=== PATIENT | male | born 1955 | race Caucasian/White ===

== ENCOUNTER 2019-01-14 08:20 | Day surgery (SDC) | payer OTHER ==
[2019-01-12 14:50] VITALS: BMI 38.0
[2019-01-14 09:24] VITALS: TEMP 98.2
[2019-01-14] MEDS ORDERED: LIDOCAINE 1% 20 ML VIAL (10MG/ML) FOR IV START INTRADERMA ONE (09:35)
[2019-01-14] MEDS: LACTATED RINGERS 1,000 ML IV SCH ×2 (09:35→09:52)
[2019-01-14] MEDS ORDERED: LIDOCAINE 1% INJ 10MG/ML (20 ML MDV) ONE (09:53)
[2019-01-14] MEDS ORDERED: KETAMINE 10 MG/ML 20 ML VIAL ONE (09:53)
[2019-01-14] MEDS ORDERED: PROPOFOL 10 MG/ML 20 ML VIAL IV ONE (09:53)
--- NOTE | 2019-01-14 10:22 | P.PCN ---
Date of Procedure: 01/14/19 Procedure(s) Performed: Brief history: Patient is a pleasant 63-year-old pleasant white male scheduled for an elective upper endoscopy as well as colonoscopy as a part of evaluation of History of GERD and Screening for Colorectal Neoplasia. Procedure performed: Esophagogastroduodenoscopy with biopsy Colonoscopy Preoperative diagnosis: GERD Screening for colon cancer Anesthesia: MAC Procedure: After informed consent was obtained from the patient was brought into the endoscopy unit and IV sedation was administered by anesthesia under continuous monitoring. Initially upper endoscopy was done. The Olympus GF 160 video endoscope was inserted inserted into the mouth and esophagus intubated without any difficulty and was gradually advanced into the stomach and duodenum and carefully examined. The bulb and second part of the duodenum appeared normal. The scope was then withdrawn into the stomach adequately insufflated with air and upon careful examination the antrum had mild gastritis and biopsies were done from this area. The body, cardia and fundus appeared normal. The scope was then withdrawn into the esophagus. The GE junction was located at 40 cm to the incisors. It appeared regular with no erythema erosions or ulcerations. Rest of the esophagus appeared normal. Patient tolerated the procedure well. At this time the patient continued to remain sedation. Initial digital rectal examination was normal. Olympus CF 160 video colonoscope was then inserted into the rectum and gradually advanced to the cecum without any difficulty. Careful examination was performed as the scope was gradually being withdrawn. The prep was excellent. The cecum, ascending colon, transverse colon, descending colon, sigmoid colon and rectum appeared normal. Retroflexion was performed in the rectum and no lesions were noted. Patient tolerated the procedure well. Impression: 1. Upper endoscopy revealed mild antral gastritis. 2. Colonoscopy was within normal limits with no evidence of colitis or colorectal neoplasia Recommendations: Findings of this examination were discussed with the patient as well as his family. He was advised to follow with the biopsy results. he will continue with PPIs and follow antireflux measures. He can have a repeat screening colonoscopy in 5 years because of prior history of colon polyps.
[2019-01-14 10:53] VITALS: BP 120/76; PULSE 70; RESP 18
== END 2019-01-14 11:11 | disposition home or self-care (01) ==
LOC: ORWHC2ENDO 08:20
PROVIDERS: ATTEND Internal Medicine Gastroenterology
DX: Z12.11 Encounter for screening for malignant neoplasm of colon (principal); K29.50 Unspecified chronic gastritis without bleeding; K21.9 Gastro-esophageal reflux disease without esophagitis; G47.33 Obstructive sleep apnea (adult) (pediatric); E78.5 Hyperlipidemia, unspecified; Z79.1 Long term (current) use of non-steroidal anti-inflammatories (NSAID); Z79.82 Long term (current) use of aspirin; Z99.89 Dependence on other enabling machines and devices; Z79.899 Other long term (current) drug therapy
CPT/HCPCS: 88305; 43239; J2001; J2704; G0121

== ENCOUNTER 2019-11-23 08:12 | Day surgery (SDC) | payer OTHER ==
[2019-11-22 09:28] VITALS: BMI 35.9
[~2019-11-23 08:12] MED LIST: DEXAMETHASONE SOD PHOSPHATE 10 MG/ML 1 ML VIAL IV ONE; HEPARIN SODIUM,PORCINE 5,000 UNIT/ML 1 ML VIAL SQ ONE; HYDROmorphone 0.5 MG/0.5 ML SYRINGE IVP PRN; LACTATED RINGERS 1,000 ML IV SCH; LIDOCAINE 1% (10MG/ML) FOR IV START INTRADERMA PRN; MIDAZOLAM 2 MG/2 ML VIAL IV PRN; ONDANSETRON 4 MG/2 ML VIAL IVP ONE; Pre Op ABX Message 1 EACH MISC MISCELLANE ONE; SCOPOLAMINE 1.5MG/72HR PATCH TRANSDERM ONE
[2019-11-23] MEDS ORDERED: NA PHOS,M-B/NA PHOS,DI-BA 133 ML ENEMA RECTAL STA (08:32)
[2019-11-23 08:44] VITALS: TEMP 97
[2019-11-23] MEDS ORDERED: MIDAZOLAM 2 MG/2 ML VIAL IV ONE (09:05)
--- NOTE | 2019-11-23 10:01 | P.GSHP ---
History of Present Illness H&P Date: 11/23/19 Chief Complaint: Internal and external hemorrhoids This is a 64-year-old male who's had issues with hemorrhoids pain and bleeding and she. Patient presents today for hemorrhoidectomy Past Medical History Past Medical History: GERD/Reflux, Hearing Disorder / Deafness, Hyperlipidemia, Musculoskeletal Disorder, Osteoarthritis (OA), Sleep Apnea/CPAP/BIPAP Additional Past Medical History / Comment(s): DDD/spinal stenosis, has cpap doesn't always use History of Any Multi-Drug Resistant Organisms: None Reported Past Surgical History: Back Surgery, Hernia Repair, Orthopedic Surgery Additional Past Surgical History / Comment(s): IVAN CTR. IVAN SHOULDER SCOPES. 03-08-15 lumbar laminectomy/decompression fusion L4-5 with interbody graftin g/fusion, carpal tunnel bilat. Past Anesthesia/Blood Transfusion Reactions: No Reported Reaction Smoking Status: Former smoker - Past Family History Mother Family Medical History: No Reported History Medications and Allergies Home Medications Medication Instructions Recorded Confirmed Type Aspirin 81 mg PO DAILY 03/06/15 11/23/19 History Divalproex Sodium 750 mg PO HS 03/06/15 11/23/19 History Meloxicam [Mobic] 15 mg PO DAILY PRN 03/06/15 11/23/19 History Pantoprazole Sodium 40 mg PO BID 03/06/15 11/23/19 History Sertraline [Zoloft] 200 mg PO DAILY 03/06/15 11/23/19 History Simvastatin [Zocor] 80 mg PO DAILY 03/06/15 11/23/19 History Levothyroxine Sodium [Synthroid] 25 mcg PO DAILY 11/22/19 11/23/19 History Allergies Allergy/AdvReac Type Severity Reaction Status Date / Time No Known Allergies Allergy Verified 11/23/19 08:48 Surgical - Exam Vital Signs Temp Pulse Resp BP Pulse Ox 97 F L 65 18 147/90 95 11/23/19 08:43 11/23/19 08:43 11/23/19 08:43 11/23/19 08:43 11/23/19 08:43 - General well developed, well nourished, no distress - Eyes PERRL - ENT normal pinna - Neck no masses - Respiratory normal expansion - Cardiovascular Rhythm: regular - Abdomen Abdomen: soft, non tender Assessment and Plan Assessment: Internal and external hemorrhoids. We'll perform hemorrhoidectomy.
[2019-11-23] MEDS ORDERED: MIDAZOLAM 2 MG/2 ML VIAL ONE (10:11)
[2019-11-23] MEDS ORDERED: PROPOFOL 10 MG/ML 20 ML VIAL IV ONE (10:11)
[2019-11-23] MEDS ORDERED: fentaNYL (PF) 50 MCG/ML 2 ML AMP ONE (10:11)
[2019-11-23] MEDS ORDERED: LIDOCAINE 1% INJ 10MG/ML (20 ML MDV) ONE (10:11)
[2019-11-23] MEDS ORDERED: BUPIVACAINE (PF) 0.25% 30 ML VIAL SQ ONE (10:39)
--- NOTE | 2019-11-23 11:02 | P.OP ---
Date of Procedure: 11/23/19 Preoperative Diagnosis: Internal and external hemorrhoids Postoperative Diagnosis: Internal and external Hemorrhoids Procedure(s) Performed: Hemorrhoidectomy Anesthesia: MAC Surgeon: Nicola Sneed Estimated Blood Loss (ml): 10 Pathology: other (Interventional hemorrhoids) Condition: stable Disposition: PACU Description of Procedure: Patient's placed on the endoscopy table in the supine position. He received IV cyst. His anus was prepped and draped usual sterile fashion. The anus was anesthetized 1% local Xylocaine. The anal retractors placed and anus. Patient large left lateral hemorrhoidal column. This was grasped with a pair of Allis clamps and then using the Harmonic scissors the hemorrhoid was performed. Next the right anterior and right posterior hemorrhoidal columns were excised in identical fashion. The anus was inspected there is no bleeding seen. The anus was packed with Gelfoam. Patient top she will was sent to recovery in stable condition.
[2019-11-23 11:56] VITALS: RESP 17
[2019-11-23 12:07] VITALS: BP 137/83; PULSE 72
== END 2019-11-23 12:03 | disposition home or self-care (01) ==
LOC: OR 08:12
PROVIDERS: ATTEND Surgery
DX: K64.5 Perianal venous thrombosis (principal); K64.8 Other hemorrhoids; K64.4 Residual hemorrhoidal skin tags; G47.33 Obstructive sleep apnea (adult) (pediatric); E07.9 Disorder of thyroid, unspecified; K21.9 Gastro-esophageal reflux disease without esophagitis; F41.9 Anxiety disorder, unspecified; F32.9 Major depressive disorder, single episode, unspecified; F43.10 Post-traumatic stress disorder, unspecified; H91.90 Unspecified hearing loss, unspecified ear; E78.5 Hyperlipidemia, unspecified; M19.90 Unspecified osteoarthritis, unspecified site; M79.9 Soft tissue disorder, unspecified; M48.00 Spinal stenosis, site unspecified; Z99.89 Dependence on other enabling machines and devices; Z79.890 Hormone replacement therapy; Z79.899 Other long term (current) drug therapy; Z79.82 Long term (current) use of aspirin; Z98.890 Other specified postprocedural states; Z98.1 Arthrodesis status; Z87.891 Personal history of nicotine dependence
CPT/HCPCS: 88304; 46260; J2250; J1644; J1100; J2405; J2001; J3010; J2704

== ENCOUNTER → 2021-06-28 | Outpatient (CLI) | payer OTHER | END | disposition home or self-care (01) | LOC: LABPAT 13:03 | PROVIDERS: ATTEND Orthopaedic Surgery | DX: Z01.812 Encounter for preprocedural laboratory examination (principal) | CPT/HCPCS: 87070 ==

== ENCOUNTER 2021-07-22 06:36 | Day surgery (SDC) | payer OTHER ==
[2021-07-19 09:37] VITALS: BMI 37.4
--- NOTE | 2021-07-21 10:34 | HP ---
HISTORY AND PHYSICAL DATE OF SURGERY: 07/22/2021 Weston Prado is a 65-year-old gentleman seen with symptomatic right knee osteoarthritis. We discussed options for treatment. He elected to proceed with right total knee arthroplasty. Consent was obtained. PAST MEDICAL HISTORY: Hypertension, hyperlipidemia, hypothyroidism. PAST SURGICAL HISTORY: Noncontributory. DAILY MEDICATIONS: Aspirin, levothyroxine, pantoprazole, sertraline, simvastatin. ALLERGIES: NONE REPORTED. SOCIAL HISTORY: He smokes 3 to 5 cigars a year. Denies any cigarette use. PHYSICAL EVALUATION OF THE RIGHT KNEE: His range of motion is negative 3/4 to 115 degrees. He has a moderate effusion. He has tenderness along the medial joint line with a positive medial Kilo's, crepitus in medial and patellofemoral compartments with range of motion. Pain with patellofemoral compression. Ligaments stable. Hip rotation without pain. His distal neurovascular exam is intact. RADIOGRAPHS: Radiographs of the right knee reveal severe osteoarthritic changes. IMPRESSION: 1. Right knee osteoarthritis. 2. Hyperlipidemia. 3. Hypertension. 4. Hypothyroidism. PLAN: Right total knee arthroplasty. MMODL / IJN: [id number] /
[~2021-07-22 06:36] MED LIST changes: +ACETAMINOPHEN TAB 500 MG TAB PO PRN; -DEXAMETHASONE SOD PHOSPHATE 10 MG/ML 1 ML VIAL IV ONE; +DEXAMETHASONE SOD PHOSPHATE 4 MG/ML 1 ML VIAL IV ONE; -HEPARIN SODIUM,PORCINE 5,000 UNIT/ML 1 ML VIAL SQ ONE; -HYDROmorphone 0.5 MG/0.5 ML SYRINGE IVP PRN; -LIDOCAINE 1% (10MG/ML) FOR IV START INTRADERMA PRN; +MELOXICAM 7.5 MG TAB PO PRN; -MIDAZOLAM 2 MG/2 ML VIAL IV PRN; -Pre Op ABX Message 1 EACH MISC MISCELLANE ONE; -SCOPOLAMINE 1.5MG/72HR PATCH TRANSDERM ONE; +TRANEXAMIC ACID 1,000 MG in SODIUM CHLORIDE 0.9% 100 ML IVPB PRN; +ceFAZolin 3 GM in SODIUM CHLORIDE 0.9% 100 ML IVPB PRN
[2021-07-22] MEDS ORDERED: LIDOCAINE 1% (10MG/ML) FOR IV START INTRADERMA ONE (07:00)
[2021-07-22] MEDS ORDERED: LIDOCAINE 1% INJ 10MG/ML (20 ML MDV) ONE (07:21)
[2021-07-22] MEDS ORDERED: MIDAZOLAM 2 MG/2 ML VIAL IV ONE (07:25)
[2021-07-22] MEDS ORDERED: ceFAZolin 1,000 MG in SODIUM CHLORIDE 0.9% 1,000 ML IRRIGATION ONE (08:13)
[2021-07-22] MEDS ORDERED: LACTATED RINGERS 1,000 ML IV ONE ×3 (08:33→09:35)
[2021-07-22] MEDS ORDERED: HYDROmorphone 0.2 MG/1 ML SYRINGE IVP PRN (09:35)
[2021-07-22] MEDS ORDERED: HYDROcodone/APAP 7.5-325MG 1 EACH TAB PO PRN (09:35)
[2021-07-22] MEDS ORDERED: NALOXONE 0.4 MG/ML 1 ML VIAL IV PRN (09:35)
[2021-07-22] MEDS ORDERED: HYDROcodone/APAP 5-325MG 1 EACH TAB PO PRN (09:35)
[2021-07-22] MEDS ORDERED: HYDROmorphone 1 MG/ML 1 ML SYRINGE IVP PRN (09:35)
[2021-07-22] MEDS ORDERED: HYDROmorphone 0.5 MG/0.5 ML SYRINGE IVP PRN (09:35)
--- NOTE | 2021-07-22 09:35 | P.OP ---
Date of Procedure: 07/22/21 Preoperative Diagnosis: Right knee osteoarthritis Postoperative Diagnosis: Right knee osteoarthritis Procedure(s) Performed: Right total knee arthroplasty Implants: 1. Depuy attune size 8 right cruciate retaining cemented femur 2. Depuy attune size 8 fixed bearing cemented tibial baseplate 3. Depuy attune size 8 fixed bearing cruciate retaining 5 mm polyethylene tibial insert 4. Depuy attune 41 mm all polyethylene cemented patella Anesthesia: GETA, regional (Adductor canal catheter, Ipack block) Surgeon: Roel Antunez Electronic Publishing Specialist #1: Jacob Vasquez Estimated Blood Loss (ml): 70 Pathology: other (Bone) Condition: stable Disposition: PACU Indications for Procedure: 65-year-old patient seen with symptomatic right knee osteoarthritis. After treatment options were discussed, he elected to proceed with total knee arthroplasty. Operative Findings: See description of procedure Description of Procedure: Patient was taken to the operative suite after having an adductor canal catheter placed by the department of anesthesia as well as and Ipack block for postoperative pain management. Patient underwent a general anesthetic by the department of anesthesia. Patient was given preoperative IV intake antibiotics and TXA. A well-padded tourniquet was placed about the right lower extremity. The lower extremity was then prepped and draped in the normal sterile orthopedic fashion. The extremity was elevated, a tourniquet was insufflated to 300. A standard anterior incision was made sharply through skin. Dissection was taken down through the subcutaneous soft tissues down to the extensor mechanism. A medial arthrotomy was performed, patella was everted and knee was flexed. There was advanced osteoarthritis noted. I introduced my distal intramedullary femoral drill. I then introduced the distal femoral cutting jig. Tawanda SAHU secured the cutting jig with 2 pins. I held retractors in position while Tawanda SAHU performed the distal femoral resection through the guide area we now removed her distal femoral cutting guide. We now placed our 4-in-1 femoral cutting block and positioned and it was secured with 2 pins by Tawanda SAHU while I held the block in position. The distal femoral finishing was now completed. A proximal tibial cutting guide was positioned. I held the guide in the appropriate position with both hands well Tawanda SAHU inserted stabilizing pins into the guide. Proximal tibial cut was made. We now placed a trial femoral component into position, along with an appropriate size tibial tray and insert. We now took the knee through range of motion and had full extension good flexion and good overall soft tissue balance noted. The patella was everted and stabilized with 2 towel clips held by Tawanda SAHU while I performed a flush with patellar quad tendon utilizing a fresh sawblade. We templated the patella, appropriate drill holes were made. An appropriate trial patella was positioned, knee was taken through full range of motion with the patella tracking very nicely. The trial patella was removed. Drill holes were made through the femoral component. All trial components were removed after marking off the appropriate rotation of the tibia. Retractors were now positioned along the proximal tibia. An appropriate keel punch was made with the appropriate size tibial guide by myself on Tawanda SAHU assisted by holding retractors. At this point appropriate size implants were chosen and opened. The joint was irrigated copiously with pulse lavage mechanical irrigation. The posterior capsule was infiltrated with local analgesic. The wound was irrigated with pulse lavage mechanical irrigation. We mixed antibiotic methylmethacrylate. We placed the knee into flexion. We placed m ultiple retractors assisted by Tawanda SAHU to expose the proximal tibia. Once the methyl methacrylate was ready, the tibial component was cemented into place removing any excess methylmethacrylate form by both myself and Tawanda SAHU. The femoral component was cemented into place removing the removing any excess methylmethacrylate performed by both myself and Tawanda SAHU. We then inserted the appropriate size polyethylene tibial insert. We made sure that it was locked into position. We took the knee into full extension, and then back in a flexion making sure we had removed any excess methylmethacrylate. The patellar component was then cemented down and secured with clamp. Excess methylmethacrylate removed. We kept the knee in full extension, patellar clamp in position until methylmethacrylate had hardened. Once it had hardened the patellar clamp was removed. The knee was taken through full range of motion. The patella tracked nicely. There was good soft tissue balancing. The tourniquet was now released. Additional hemostasis was achieved via electrocautery. A second gram of TXA was given. The wound again was irrigated with pulse lavage mechanical irrigation. The superficial soft tissues were infiltrated local analgesic. The extensor mechanism was repaired with Ethibond. We checked the repair with range of motion and it was stable. The subcutaneous soft tissues were repaired with Vicryl in layers. The skin was approximated with pernio/Dermabond. Sterile dressings were applied followed by loose web roll and Blaine bandage. The patient was transferred to a bed, and taken to recovery in stable and satisfactory condition. Tawanda SAHU assisted with this complex procedure.
[2021-07-22] MEDS ORDERED: fentaNYL (PF) 50 MCG/ML 2 ML AMP IVP ONE ×2 (10:00→10:04)
[2021-07-22 10:18] VITALS: TEMP 97
[2021-07-22] MEDS ORDERED: ROPIVACAINE 0.2%-NS ON-Q PUMP 1,090 MG, EMPTY PAIN BALL 1 EACH MISCELLANE PRN (10:26)
[2021-07-22] MEDS: HYDROmorphone 0.5 MG/0.5 ML SYRINGE IVP PRN ×4 (10:29→11:12)
--- NOTE | 2021-07-22 10:53 | P.ANPRN ---
Procedure Note - Anesthesia - Nerve Block Performed Right Adductor Canal Infusion Time Out Performed: Yes (724) Date of Procedure: 07/22/21 Procedure Start Time: 07:25 Procedure Stop Time: 07:31 Location of Patient: PreOp Indication: Acute Post-Operative Pain, Requested by Surgeon Specifically requested for management of pain by DrBebe: Roel Antunez Sedation Type: Sedate with meaningful contact maintained Preparation: Sterile Prep, Sterile Dressing Position: Supine Catheter Depth at Skin (cm): 8 Catheter: Indwelling Needle Types: Pajunk Needle Gauge: 21 Ultrasound used to visualize needle placement: Yes Ultrasound used to observe medication spread: Yes Injectate: 0.5% Ropivacaine (see comment for volume) (20cc) Blood Aspirated: No Pain Paresthesia on Injection Noted: No Resistance on Injection: Normal Image Stored and Saved: Yes Events: Uneventful and Well Tolerated Right iPack Single Time Out Performed: Yes (724) Date of Procedure: 07/22/21 Procedure Start Time: 07:32 Procedure Stop Time: 07:36 Location of Patient: PreOp Indication: Acute Post-Operative Pain, Requested by Surgeon Specifically requested for management of pain by DrBebe: Roel Antunez Sedation Type: Sedate with meaningful contact maintained Preparation: Sterile Prep Position: Supine Catheter: None Needle Types: Pajunk Needle Gauge: 21 Ultrasound used to visualize needle placement: Yes Ultrasound used to observe medication spread: Yes Injectate: 0.5% Ropivacaine (see comment for volume) (15cc) Blood Aspirated: No Resistance on Injection: Normal Image Stored and Saved: Yes Events: Uneventful and Well Tolerated
[2021-07-22 10:58] VITALS: RESP 16
--- NOTE | 2021-07-22 11:44 | XR ---
Limited right knee HISTORY: Status post right knee arthroscopy 2 views of the right knee Status post right knee arthroplasty. There is anatomic alignment. Overlying sutures are present. The soft tissue swelling, lucency present within the soft tissues, possible hemarthrosis. IMPRESSION: Orthopedic follow-up as described.
[2021-07-22] MEDS ORDERED: ceFAZolin 3 GM in SODIUM CHLORIDE 0.9% 100 ML IVPB ONE (12:00)
[2021-07-22 13:15] VITALS: BP 118/76; PULSE 85
[2021-07-22] MEDS ORDERED: ONDANSETRON 4 MG/2 ML VIAL ONE (13:48)
[2021-07-22] MEDS ORDERED: ONDANSETRON 4 MG/2 ML VIAL IVP ONE (13:50)
== END 2021-07-22 14:35 | disposition home health service (06) ==
LOC: OR 06:36
PROVIDERS: ATTEND Orthopaedic Surgery
DX: M17.11 Unilateral primary osteoarthritis, right knee (principal); I10 Essential (primary) hypertension; E78.5 Hyperlipidemia, unspecified; E03.9 Hypothyroidism, unspecified; F17.290 Nicotine dependence, other tobacco product, uncomplicated; G47.33 Obstructive sleep apnea (adult) (pediatric); G62.9 Polyneuropathy, unspecified; F41.9 Anxiety disorder, unspecified; F31.9 Bipolar disorder, unspecified; F43.10 Post-traumatic stress disorder, unspecified; K21.9 Gastro-esophageal reflux disease without esophagitis; Z98.890 Other specified postprocedural states; Z79.890 Hormone replacement therapy; Z79.82 Long term (current) use of aspirin; Z79.899 Other long term (current) drug therapy; Z90.49 Acquired absence of other specified parts of digestive tract
CPT/HCPCS: 97110; 97161; 64999; 64448; 76942; 88300; 73560; 27447; C1776; C1713 ×2; J2250; J1100; J0690 ×2; J2405; J3010; J1170; J2795

== ENCOUNTER → 2022-03-20 | Outpatient (CLI) | payer OTHER ==
--- NOTE | 2022-03-20 11:32 | CA ---
Exercise Stress Test Report Name: Weston Prado Exam Date: 03/20/2022 09:33 Exam Location: [facility] Ht (in): 73 Wt (lb): 281 BSA: 2.49 Ordering Phys: Cristy Quiles DO Referring Phys: Angelica Davies Technologist: Vicente Felder Age: 66 Gender: M : 1955 Procedure CPT: Indications: I51.7 Cardiomegaly ICD-10 Codes: Patient History: Medications: Meds past 24 hrs: Pretest Chest Pain: STRESS TEST [facility] Protocol Exercise Duration (min:sec): 06:[address] Depressions (mm): Angina Score: Morales Score: Resting HR (bpm): 73 Peak HR (bpm): 136 Resting BP (mmHg): 135 / 85 Peak BP (mmHg): 214 / 71 MPHR: 154 Target HR: 131 % MPHR: 88 METS: 8.6 Total Dose: Peak Dose: Atropine: Double Product: 59975 BP Response: Stress Termination: Reached target heart rate Stress Symptoms: NO SYMPTOMS Stress Summary: ECG ANALYSIS Resting ECG: Stress ECG: CONCLUSIONS Good exercise tolerance Good augmentation in the heart rate and blood pressure response to exercise The patient achieved 85% of maximum predicted heart rate Normal EKG in response to exercise Dr. Braydon Pichardo MD (Electronically Signed) Final Date: 20 March 2022 11:31
== END | disposition home or self-care (01) ==
LOC: RADNMMAIN 08:53
PROVIDERS: ATTEND Family Medicine
DX: I20.9 Angina pectoris, unspecified (principal)
CPT/HCPCS: 93017

== ENCOUNTER → 2022-12-01 | Outpatient (CLI) | payer MEDICARE, OTHER | END | disposition home or self-care (01) | LOC: LABWHC1 10:13 | PROVIDERS: ATTEND Orthopaedic Surgery | DX: Z01.812 Encounter for preprocedural laboratory examination (principal); M19.011 Primary osteoarthritis, right shoulder; Z22.322 Carrier or suspected carrier of Methicillin resistant Staphylococcus aureus | CPT/HCPCS: 87070 ==

== ENCOUNTER 2022-12-30 08:46 | Observation (INO) | payer MEDICARE, OTHER ==
[2022-12-24 12:15] VITALS: BMI 37.5
--- NOTE | 2022-12-29 09:08 | P.HPOR ---
History of Present Illness H&P Date: 12/29/22 Chief Complaint: Left shoulder pain The patient's a 67-year-old retired male presents with progressive left shoulder pain for the past couple years worsening recently. He is having pain with any attempted overhead use. He notes significant night symptoms. He's tried medica tions in addition to an injection without much relief. He notes daily pain that limits his function and activities. Review of Systems As below Past Medical History Past Medical History: GERD/Reflux, Hearing Disorder / Deafness, Hyperlipidemia, Hypertension, Musculoskeletal Disorder, Osteoarthritis (OA), Sleep Apnea/CPAP/BIPAP Additional Past Medical History / Comment(s): DDD/spinal stenosis, has cpap doesn't always use History of Any Multi-Drug Resistant Organisms: None Reported Past Surgical History: Back Surgery, Cholecystectomy, Hernia Repair, Orthopedic Surgery Additional Past Surgical History / Comment(s): [facility]. IVAN SHOULDER SCOPES. 03-08-15 lumbar laminectomy/decompression fusion L4-5 with interbody grafting/fusion, COLONOSCOPY, HEMORRHOIDECTOMY Past Anesthesia/Blood Transfusion Reactions: Previous Problems w/ Anesthesia Additional Past Anesthesia/Blood Transfusion Reaction / Comment(s): WOKE UP DURING SURGERY Smoking Status: Current some day smoker - Past Family History Mother Family Medical History: No Reported History Medications and Allergies Home Medications Medication Instructions Recorded Confirmed Type Aspirin 81 mg PO DAILY 03/06/15 12/24/22 History Divalproex Sodium 750 mg PO HS 03/06/15 12/24/22 History Pantoprazole Sodium 40 mg PO BID 03/06/15 12/24/22 History Sertraline [Zoloft] 200 mg PO DAILY 03/06/15 12/24/22 History Simvastatin [Zocor] 80 mg PO DAILY 03/06/15 12/24/22 History Levothyroxine Sodium [Synthroid] 50 mcg PO DAILY 11/22/19 12/24/22 History Cyclobenzaprine [Flexeril] 10 mg PO TID PRN 07/19/21 12/24/22 History Pregabalin [Lyrica] 75 mg PO TID 07/19/21 12/24/22 History Sucralfate [Carafate] 1 gm PO ACHS PRN 07/19/21 12/24/22 History Metoprolol Succinate [Metoprolol 25 mg PO DAILY 12/24/22 12/24/22 History Succinate ER] lisinopriL [Zestril] 5 mg PO DAILY 12/24/22 12/24/22 History Allergies Allergy/AdvReac Type Severity Reaction Status Date / Time No Known Allergies Allergy Verified 12/24/22 11:58 Physical Examination - Shoulder left Appearance: effusion Effusion grade: grade 1 Tenderness with palpation: anterior Pain: with forward flexion ROM: forward flexion: 80 degrees (80 actively, 120 passively) ROM: internal rotation: lower lumbar ROM: external rotation: 10 degrees Strength: abduction: 5/5 Strength: external rotation: 5/5 Tests: internal impingement tests: positive Results The patient is a well-developed well-nourished male, approximately 6 foot 1, 278 pounds of endomorphic habitus. HEENT exam is nonfocal, neck supple. His distal neurovascular appears intact in the left upper extremity. - Diagnostic results Shoulder x-ray: image reviewed (Reviews of the left shoulder obtained in the office show severe glenohumeral joint osteoarthrosis with [id number] changes and subchondral sclerosis. The humeral head to acromial distance appears to be maintained.) Assessment and Plan Assessment: Left severe glenohumeral joint osteoarthrosis Plan: I talked to the patient at length regarding his condition along with treatment options. He remains quite symptomatic because of pain related to his osteoarthrosis despite extensive conservative measures. After thorough discussion he opted to proceed with surgery. We'll plan to proceed with left total shoulder arthroplasty. Risks and benefits were discussed at length in layman's terms.
[~2022-12-30 08:46] MED LIST changes: +HYDROmorphone 0.5 MG/0.5 ML SYRINGE IVP PRN; -LACTATED RINGERS 1,000 ML IV SCH; +LIDOCAINE 1% (10MG/ML) FOR IV START INTRADERMA PRN; +MIDAZOLAM 2 MG/2 ML VIAL IV PRN; -TRANEXAMIC ACID 1,000 MG in SODIUM CHLORIDE 0.9% 100 ML IVPB PRN; +TRANEXAMIC ACID IN NACL,ISO-OS 1,000 MG in SALINE 1 100ML.BAG IVPB PRN
[2022-12-30] MEDS ORDERED: LACTATED RINGERS 1,000 ML IV ONE ×2 (09:18→13:10)
[2022-12-30] MEDS ORDERED: MIDAZOLAM 2 MG/2 ML VIAL IVP ONE (09:51)
[2022-12-30] MEDS ORDERED: ROPIVACAINE 5 MG/ML 30 ML VIAL ONE (11:42)
[2022-12-30] MEDS ORDERED: MIDAZOLAM 2 MG/2 ML VIAL ONE (11:42)
[2022-12-30] MEDS ORDERED: SUCCINYLCHOLINE CHLORIDE 200 MG/10 ML VIAL IV ONE (11:42)
[2022-12-30] MEDS ORDERED: HYDROmorphone (PF) 1 MG/ML ONE (11:42)
[2022-12-30] MEDS ORDERED: TRANEXAMIC ACID IN NACL,ISO-OS 1,000 MG/100 ML BAG ONE (11:42)
[2022-12-30] MEDS ORDERED: LIDOCAINE 2% INJ 20 MG/ML (2 ML VIAL) ONE (11:42)
[2022-12-30] MEDS ORDERED: LIDOCAINE 4% LTA KIT (4 ML) TOPICAL ONE (11:42)
[2022-12-30] MEDS ORDERED: fentaNYL (PF) 50 MCG/ML 2 ML AMP ONE (11:42)
[2022-12-30] MEDS ORDERED: PROPOFOL 10 MG/ML 20 ML VIAL IV ONE (11:42)
[2022-12-30] MEDS ORDERED: diphenhydrAMINE 50 MG/ML 1 ML VIAL ONE (11:42)
[2022-12-30] MEDS ORDERED: ceFAZolin 1,000 MG in SODIUM CHLORIDE 0.9% 1,000 ML IRRIGATION ONE (12:17)
--- NOTE | 2022-12-30 13:13 | P.ANPRN ---
Procedure Note - Anesthesia - Nerve Block Performed Left Interscalene Time Out Performed: Yes (09:50) Date of Procedure: 12/30/22 Procedure Start Time: :50 Procedure Stop Time: :56 Location of Patient: PreOp Indication: Acute Post-Operative Pain, Requested by Surgeon (DR Arnold) Sedation Type: Sedate with meaningful contact maintained Preparation: Sterile Prep Position: Supine Catheter: None Needle Types: Pajunk Needle Gauge: Other (see comment) (22g) Ultrasound used to visualize needle placement: Yes Ultrasound used to observe medication spread: Yes Injectate: 0.5% Ropivacaine (see comment for volume) (20cc) Blood Aspirated: No Pain Paresthesia on Injection Noted: No Resistance on Injection: Normal Image Stored and Saved: Yes Events: Uneventful and Well Tolerated
[2022-12-30] MEDS ORDERED: SENNOSIDES-DOCUSATE SODIUM 1 EACH TAB PO PRN (13:43)
[2022-12-30] MEDS ORDERED: HYDROmorphone 0.5 MG/0.5 ML SYRINGE IVP PRN (13:43)
[2022-12-30] MEDS ORDERED: HYDROcodone/APAP 5-325MG 1 EACH TAB PO PRN (13:43)
--- NOTE | 2022-12-30 14:00 | P.OP ---
Date of Procedure: 12/30/22 Preoperative Diagnosis: Left severe glenohumeral joint osteoarthrosis Postoperative Diagnosis: Same Procedure(s) Performed: Left total shoulder arthroplasty Implants: [employer] size 12 press-fit humeral stem, size 12 body, 52 x 18 mm eccentric humeral head, 52 mm cemented central pegged glenoid component. Anesthesia: moriah MAXWELL Surgeon: Aaron Arnold Speech Therapist #1: Manav You Estimated Blood Loss (ml): 150 Pathology: other (Humeral head) Condition: stable Disposition: PACU Indications for Procedure: The patient's a 67-year-old male who presents with progressive left shoulder pain secondary to osteoarthrosis despite conservative measures. A discussion of the risks and benefits of operative intervention versus continued conservative measures was made with patient. He opted to proceed with surgery. Operative ri sks to include infection, neurovascular injury, development of blood clots, component loosening, component failure, and possible need for subsequent procedures was discussed. Informed consent was obtained. Operative Findings: As below Description of Procedure: The patient was brought to the operating room, and after induction of general an esthesia was placed in the beachchair position. The bony prominences were appropriately padded. The left upper extremity was prepped and draped in normal fashion. A deltopectoral incision was then made lateral to the coracoid process extending approximately 12 cm. The skin was incised sharply. Subcutaneous tissues were divided bluntly. Electrocautery was used for hemostasis. The deltopectoral interval was identified and the cephalic vein gently retracted laterally with the deltoid. Subdeltoid adhesions were bluntly dissected. A self-retaining retractor was placed. The clavipectoral fascia was opened and the conjoined tendon gently retracted medially. The upper one third of the pectoralis major was released to help facilitate exposure. The biceps was identified and the sheath was opened. The rotator interval was opened. The biceps was tenotomized and allowed to retract distally. A subscapularis peel was performed and this was tagged. The humeral head was then exposed releasing the capsule off the humeral neck. The shoulder was gently dislocated. A starting hole was made in the head in line with the humeral shaft. The shaft was reamed by hand up to 12 mm. There is good distal chatter. The cutting guide was placed planning on a cut flush with the rotator cuff insertion and 30 of retroversion. The cutting block was pinned in place. The humeral head cut was then made. This measured most appropriately at 52 x 18 mm. Residual inferior osteophytes were carefully removed flush with the [place] cortical bone. A posterior glenoid retractor was placed. The glenoid was then exposed releasing the labrum from the 6-12 o'clock position. Residual labral tissue was removed. The glenoid sized most appropriate 52 mm. A guidewire was then inserted planning on the appropriate version. The glenoid was reamed down to a bleeding bony surface. The central pedicle was drilled. The alignment guide was placed in the peripheral peg holes drilled. The trial size 52 mm glenoid was placed and was fully seated. There was good anterior to posterior and inferior to superior fit. The trial component was removed. Pulsatile lavage was utilized. The bony surface was dried. The peripheral peg holes were then pressurized with cement utilizing a syringe. Excess cement was removed. A central peg glenoid was then placed and was fully seated. This was gently imp acted. This was held in place until the cement had sufficiently hardened. Attention was then paid again towards preparing the proximal humerus. The appropriate broach was placed in 30 of retroversion and was fully seated. An eccentric 52 x 18 mm humeral head was placed. The shoulder was gently reduced. It was taken through a range of motion. It was felt to be stable in flexion and extension with internal and external rotation. I felt there was adequate protestant of soft tissue tension. The shoulder was gently dislocated. The trial components were then removed. A #2 Ethibond was placed laterally for reattachment of the lesser tuberosity. The humeral stem was inserted in 30 of retroversion and was fully seated. There was good rotational stability. The eccentric 52 x 18 mm humeral head was gently impacted. The shoulder was then gently reduced and taken through range of motion and was felt to be stable. Pulsatile lavage was utilized. Lesser tuberosity was reattached utilizing #2 Ethibond suture. The rotator interval was closed with #2 Ethibond suture. She had minimal drainage at this point therefore a deep drain was not placed. The deltopectoral interval was closed with interrupted 2-0 Vicryl sutures. The subcu tissues were reapproximated with interrupted 2-0 Vicryl sutures. The skin was reprepped with 3-0 subcuticular Prolene suture. Steri-Strips were applied. A sterile dressing was applied in addition to a sling. The patient was then awoken from general anesthesia and transferred to recovery room in good condition. Manav SAHU assisted during the major components the case to include positioning, exposure, resection, implantation, and closure. Blood loss was estimated at 150 mL. No complications were incurred. Sponge and needle counts were correct at the end the case.
--- NOTE | 2022-12-30 15:07 | XR ---
EXAMINATION TYPE: XR shoulder limited LT DATE OF EXAM: 12/30/2022 CLINICAL HISTORY: Left shoulder pain and osteoarthritis TECHNIQUE: Portable single view of the left shoulder is obtained immediately postoperatively. COMPARISON: Outside left shoulder x-ray November 24, 2022. FINDINGS: There is metallic hardware from left shoulder surgery in the humeral head appears satisfac tory in position. Evidence of recent surgery with adjacent subcutaneous gas noted. IMPRESSION: As above.
[2022-12-30] MEDS: LACTATED RINGERS 1,000 ML IV SCH (16:55)
[2022-12-30] MEDS: PREGABALIN 75 MG CAP PO SCH ×2 (17:03→22:05)
[2022-12-30 17:04] LABS: Basophils % (A) 0 %; Eosinophils % (A) 0 %; HCT 42.3 % (39.0-53.0); HGB 14.4 gm/dL (13.0-17.5); Lymphocytes # (A) 0.9 k/uL (1.0-4.8); Lymphocytes % (A) 8 %; MCH 30.7 pg (25.0-35.0); MCHC 33.9 g/dL (31.0-37.0); MCV 90.6 fL (80.0-100.0); Mean Platelet Volume 8.6; Monocytes # (A) 0.4 k/uL (0-1.0); Monocytes % (A) 3 %; Neutrophils # (A) 10.2 k/uL (1.3-7.7); Neutrophils % (A) 88 %; Platelet Count 203 k/uL (150-450); RBC 4.67 m/uL (4.30-5.90); RDW 13.6 % (11.5-15.5); WBC 11.6 k/uL (3.8-10.6)
[2022-12-30] MEDS: PANTOPRAZOLE 40 MG TABLET PO SCH (17:04)
--- NOTE | 2022-12-30 17:10 | P.CONS ---
History of Present Illness - Reason for Consult Consult date: 12/30/22 - History of Present Illness Patient is a 67-year-old male with history of hypertension, dyslipidemia, hyp othyroidism, GERD, depression presenting for elective left total shoulder arthroplasty. [facility] [place] physicians has been consulted for medical management. Currently patient denies any chest pain, shortness of breath, abdominal pain, urinary or bowel complaints. Pertinent positives and negatives as discussed in HPI, a complete review of systems was performed and all other systems are negative. Patient seen and examined at bedside. Vital signs reviewed General: nontoxic, no distress, appears at stated age Derm: warm, dry, dressing clean, dry, intact Head: atraumatic, normocephalic, symmetric Eyes: EOMI, no lid lag, anicteric sclera, pupils equal round reactive to light ENT: Nose and ears atraumatic Neck: No thyromegaly, supple Mouth: no lip lesion, mucus membranes moist Cardiovascular: S1S2 reg, no murmur, no edema Lungs: clear to auscultation bilateral, no rhonchi, no rales, no wheeze, no accessory muscle use Abdominal: soft, nontender to palpation, no guarding, no appreciable organome destiney Ext: no gross muscle atrophy, left arm Neuro: CN II-XII grossly intact Psych: Alert, oriented, appropriate affect Assessment/Plan: Status post left total shoulder arthroplasty Hypertension Dyslipidemia Hypothyroidism GERD Depression -Operative note reviewed, 150 mL blood loss -On oral [place], IV Dilaudid as needed for pain control -Aspirin 325 mg daily for DVT prophylaxis -Medications reviewed and reconciled -CBC and CMP ordered for tomorrow Thank you for allowing us to participate in the care of this pleasant patient. Do not hesitate to contact us with questions. Someone can be reached from the [facility] hospitalist group all hours of the day at [phone] or via [employer]. Past Medical History Past Medical History: GERD/Reflux, Hearing Disorder / Deafness, Hyperlipidemia, Hypertension, Musculoskeletal Disorder, Osteoarthritis (OA), Sleep Apnea/CPAP/BIPAP Additional Past Medical History / Comment(s): DDD/spinal stenosis, has cpap doesn't always use History of Any Multi-Drug Resistant Organisms: None Reported Past Surgical History: Back Surgery, Cholecystectomy, Hernia Repair, Orthopedic Surgery Additional Past Surgical History / Comment(s): IVAN CTR. IVAN SHOULDER SCOPES. 03-08-15 lumbar laminectomy/decompression fusion L4-5 with interbody graftin g/fusion, COLONOSCOPY, HEMORRHOIDECTOMY Past Anesthesia/Blood Transfusion Reactions: Previous Problems w/ Anesthesia Additional Past Anesthesia/Blood Transfusion Reaction / Comm: WOKE UP DURING SURGERY Past Psychological History: Anxiety, Depression, Panic Disorder, PTSD Smoking Status: Current some day smoker Past Alcohol Use History: None Reported Additional Past Alcohol Use History / Comment(s): HX RARE CIGAR USE. No cigarettes. Past Drug Use History: Marijuana Additional Drug Use History / Comment(s): CBD oils po BID.-INSTRUCTED TO REFRAIN FROM USE FOR AT LEAST 24 HOURS PRIOR TO PROCEDURE - Past Family History Mother Family Medical History: No Reported History Medications and Allergies Home Medications Medication Instructions Recorded Confirmed Type Aspirin 81 mg PO DAILY 03/06/15 12/24/22 History Divalproex Sodium 750 mg PO HS 03/06/15 12/24/22 History Pantoprazole Sodium 40 mg PO BID 03/06/15 12/24/22 History Sertraline [Zoloft] 200 mg PO DAILY 03/06/15 12/24/22 History Simvastatin [Zocor] 80 mg PO DAILY 03/06/15 12/24/22 History Levothyroxine Sodium [Synthroid] 50 mcg PO DAILY 11/22/19 12/24/22 History Cyclobenzaprine [Flexeril] 10 mg PO TID PRN 07/19/21 12/24/22 History Pregabalin [Lyrica] 75 mg PO TID 07/19/21 12/24/22 History Sucralfate [Carafate] 1 gm PO ACHS PRN 07/19/21 12/24/22 History Metoprolol Succinate [Metoprolol 25 mg PO DAILY 12/24/22 12/24/22 History Succinate ER] lisinopriL [Zestril] 5 mg PO DAILY 12/24/22 12/24/22 History Allergies Allergy/AdvReac Type Severity Reaction Status Date / Time No Known Allergies Allergy Verified 12/24/22 11:58 Physical Exam Vitals: Vital Signs Temp Pulse Pulse Resp BP BP Pulse Ox 12/30/22 15:25 68 16 112/61 98 12/30/22 15:10 66 16 125/78 98 12/30/22 15:01 100 12/30/22 14:55 65 14 110/67 97 12/30/22 14:40 68 12 106/63 96 12/30/22 14:25 66 14 102/57 96 12/30/22 14:10 70 14 104/63 95 12/30/22 13:55 97.9 F 62 12 99/58 95 12/30/22 10:05 74 18 137/76 98 12/30/22 09:13 97 F L 72 18 128/81 97 Intake and Output 12/30/22 12/30/22 12/30/22 06:59 14:59 22:59 Intake Total 1401 300 Output Total 150 Balance 1251 300 Intake: IV 1401 300 Output: Estimated Blood Loss 150 Other: Weight 129.274 kg Results CBC & Chem 7: 12/30/22 16:45 Labs: Abnormal Lab Results - Last 24 Hours (Table) 12/30/22 Range/Units 16:45 WBC 11.6 H (3.8-10.6) k/uL Neutrophils # 10.2 H (1.3-7.7) k/uL Lymphocytes # 0.9 L (1.0-4.8) k/uL
[2022-12-30] MEDS: HYDROcodone/APAP 7.5-325MG 1 EACH TAB PO PRN (19:28)
[2022-12-30] MEDS: DIVALPROEX 250 MG TABLET.DR PO SCH (22:05)
[2022-12-30] MEDS: SERTRALINE 100 MG TAB PO SCH (22:05)
[2022-12-30] MEDS: ceFAZolin 3 GM in SODIUM CHLORIDE 0.9% 100 ML IVPB SCH (22:06)
[2022-12-30] MEDS ORDERED: IPRATROPIUM-ALBUTEROL 3 ML NEB INHALATION PRN (22:40)
[2022-12-31] MEDS: SUCRALFATE 1 GM TAB PO PRN (00:48)
[2022-12-31] MEDS: HYDROcodone/APAP 7.5-325MG 1 EACH TAB PO PRN ×4 (00:48→17:43)
[2022-12-31] MEDS: CYCLOBENZAPRINE 10 MG TAB PO PRN ×2 (03:44→17:43)
[2022-12-31] MEDS: ceFAZolin 3 GM in SODIUM CHLORIDE 0.9% 100 ML IVPB SCH (05:05)
[2022-12-31] MEDS: PANTOPRAZOLE 40 MG TABLET PO SCH ×2 (05:05→17:43)
[2022-12-31] MEDS: LEVOTHYROXINE 50 MCG TAB PO SCH (05:05)
[2022-12-31] MEDS: LACTATED RINGERS 1,000 ML IV SCH (05:45)
[2022-12-31] MEDS: HYDROmorphone 0.5 MG/0.5 ML SYRINGE IVP PRN ×3 (06:34→15:27)
[2022-12-31] MEDS: ASPIRIN 325 MG TAB PO SCH (08:48)
[2022-12-31] MEDS: METOPROLOL SUCCINATE (ER) 25 MG TAB.ER.24H PO SCH (08:49)
[2022-12-31] MEDS: ATORVASTATIN 40 MG TAB PO SCH (08:49)
[2022-12-31] MEDS: lisinopriL 5 MG TAB PO SCH (08:49)
[2022-12-31] MEDS: PREGABALIN 75 MG CAP PO SCH ×3 (08:49→20:49)
[2022-12-31] MEDS: TAMSULOSIN 0.4 MG CAP.ER.24H PO SCH (09:32)
--- NOTE | 2022-12-31 10:03 | P.PN ---
Subjective Progress Note Date: 12/31/22 Principal diagnosis: Left total shoulder arthroplasty Patient was evaluated today at bedside, he is resting in his hospital bed. She is having some increase in pain. He has been utilizing arm sling as instructed. He has had 2 separate occasions since surgery yesterday where they had to straight cath due to urinary retention. Last straight cath was about an hour ago. Nursing is monitoring this at this time. Patient also did develop some shortness of breath that required use of a breathing treatment. Patient has a known history of sleep apnea, he states that his machine was recall the knee has not got another one since then. Currently has no headaches, lightheadedness or chest pain. Objective - Vital Signs Vital signs: Vital Signs Temp 98.1 F 12/31/22 07:31 Pulse 68 12/31/22 07:31 Resp 17 12/31/22 07:31 BP 125/76 12/31/22 07:31 Pulse Ox 93 L 12/31/22 07:31 FiO2 Intake & Output 12/30/22 12/31/22 12/31/22 18:59 06:59 18:59 Intake Total 1701 Output Total 150 1000 Balance 1551 -1000 Weight 129.274 kg Intake: IV 1701 Output: Urine 1000 Straight 1000 Estimated Blood Loss 150 Other: # Voids 0 - Exam Left upper extremity: Postoperative dressing was removed, Steri-Strips and suture all in good position condition. Minimal soft tissue swelling present throughout the extremity. Compartments are soft and compressible. Extension and flexion are intact at the elbow and wrist. Radial ulnar pulses are 2+. Sensory exam to light touch throughout the extremity is intact. - Labs CBC & Chem 7: 12/30/22 16:45 Labs: Abnormal Lab Results - Last 24 Hours (Table) 12/30/22 Range/Units 16:45 WBC 11.6 H (3.8-10.6) k/uL Neutrophils # 10.2 H (1.3-7.7) k/uL Lymphocytes # 0.9 L (1.0-4.8) k/uL Assessment and Plan Assessment: Postoperative day #1 status post left total shoulder arthroplasty Postoperative urinary retention Other medical comorbidities Plan: Pain control, will adjust oral medications DVT prophylaxis, continue use of aspirin 325 mg daily Sling instructions were discussed, we also discussed instances where he can take breaks from its utilize elbow and wrist basic range of motion exercises New dressing was placed over incision, continue to monitor Monitor urinary retention, if patient is unable to urinate throughout the day will likely require urinary catheter placement and urology consult Medical recommendations appreciated Discharge planning: Due to pain control and urinary retention will keep patient in hospital at this time Time with Patient: Less than 30
[2022-12-31 12:11] LABS: ALT 26 U/L (10-49); AST 34 U/L (14-35); African American GFR (CKD) 50.9 (60.0-200.0); Albumin/Globulin Ratio 2.35 (1.60-3.17); Alkaline Phosphatase 64 U/L (41-126); BUN/Creat Ratio 14.25 Ratio (12.00-20.00); Blood Urea Nitrogen 22.8 mg/dL (9.0-27.0); Calcium 8.4 mg/dL (8.7-10.3); Carbon Dioxide 26.8 mmol/L (20.0-27.5); Chloride 99 mmol/L (96-109); Globulin 1.7 g/dL (1.6-3.3); Glucose 92 mg/dL (70-110); Non-African American GFR(CKD) 43.9 (60.0-200.0); Potassium 4.2 mmol/L (3.5-5.5); Sodium 137 mmol/L (135-145); Total Bilirubin <0.15 mg/dL (0.30-1.20); Total Protein 5.7 g/dL (6.2-8.2)
--- NOTE | 2022-12-31 12:27 | P.PN ---
Subjective Progress Note Date: 12/31/22 Subjective: She is seen and examined at bedside. No acute events overnight. He has si gnificant pain in his left shoulder. Also having urinary retention, required straight cath 2 times. He denies any chest pain, abdominal pain, nausea, vomiting, diarrhea or constipation. Pertinent positives and negatives as discussed above, a complete review of systems was performed and all other systems are negative. Vitals Signs Reviewed. General: nontoxic, no distress, appears at stated age Derm: warm, dry, dressing dry, clean, intact Head: atraumatic, normocephalic, symmetric Eyes: EOMI, no lid lag, anicteric sclera Mouth: no lip lesion, mucus membranes moist Cardiovascular: S1S2 reg, no murmur Lungs: CTA bilateral, no rhonchi, no rales , no accessory muscle use Abdominal: soft, nontender to palpation, no guarding, no appreciable organomegaly Ext: no gross muscle atrophy, no edema, no contractures, left arm in a sling Neuro: CN II-XI grossly intact, no focal neuro deficits Psych: Alert, oriented, appropriate affect Data Reviewed Today: Pertinent Labs: Sodium 137, potassium 4.2, creatinine 1.6 Assessment and Plan: Acute urinary retention Acute kidney injury, likely postobstructive Status post left total shoulder arthroplasty Hypertension Dyslipidemia Hypothyroidism GERD Depression -Flomax 0.4 mg daily started -Surgery note reviewed: Continues to have urinary retention, place a [place] catheter and an urology consult -On oral [place], IV Dilaudid as needed for pain control -Aspirin 325 mg daily for DVT prophylaxis -Home medications reviewed, continue Thank you for allowing us to participate in the care of this pleasant patient. Do not hesitate to contact us with questions. Someone can be reached from the [facility] hospitalist group all hours of the day at [phone] or via [employer]. Objective - Vital Signs Vital signs: Vital Signs Temp 98.1 F 12/31/22 07:31 Pulse 68 12/31/22 07:31 Resp 17 12/31/22 07:31 BP 125/76 12/31/22 07:31 Pulse Ox 93 L 12/31/22 07:31 FiO2 Intake & Output 12/30/22 12/31/22 12/31/22 18:59 06:59 18:59 Intake Total 1701 Output Total 150 1000 Balance 1551 -1000 Weight 129.274 kg Intake: IV 1701 Output: Urine 1000 Straight 1000 Estimated Blood Loss 150 Other: # Voids 0 - Labs CBC & Chem 7: 12/30/22 16:45 12/31/22 06:21 Labs: Abnormal Lab Results - Last 24 Hours (Table) 12/30/22 12/31/22 Range/Units 16:45 06:21 WBC 11.6 H (3.8-10.6) k/uL Neutrophils # 10.2 H (1.3-7.7) k/uL Lymphocytes # 0.9 L (1.0-4.8) k/uL Creatinine 1.6 H (0.6-1.5) mg/dL Est GFR (CKD-EPI)AfAm 50.9 L (60.0-200.0) Est GFR (CKD-EPI)NonAf 43.9 L (60.0-200.0) Calcium 8.4 L (8.7-10.3) mg/dL Total Bilirubin <0.15 L (0.30-1.20) mg/dL Total Protein 5.7 L (6.2-8.2) g/dL
--- NOTE | 2022-12-31 17:52 | P.GSCN ---
History of Present Illness Consult date: 12/31/22 History of present illness: 67 yo male who underwent left shoulder surgery 12/30. He has had persistent post op urinary retention. For this reason we were asked to see the patient. The patient does have a history of previous post surgical retention. He denies problems urinating otherwise however. He has never seen a urologist. He denies infection, incontinence hematuria or difficulty with urination. The amount of retention was around a liter. Review of Systems All systems: negative - Constitutional Denies fever, Denies weight loss - EENT Eyes: denies blurred vision Ears, nose, mouth and throat: Denies dysphagia - Cardiovascular Denies chest pain, Denies shortness of breath - Respiratory Denies cough, Denies 7 - Gastrointestinal Reports as per HPI - Genitourinary Denies dysuria, Denies hematuria - Integumentary Denies rash, Denies unusual bruising - Neurological Denies headaches, Denies syncope - Hematologic/Lymphatic Denies easy bleeding, Denies easy bruising Past Medical History Past Medical History: GERD/Reflux, Hearing Disorder / Deafness, Hyperlipidemia, Hypertension, Musculoskeletal Disorder, Osteoarthritis (OA), Sleep Apnea/CPAP/BIPAP Additional Past Medical History / Comment(s): DDD/spinal stenosis, has cpap doesn't always use History of Any Multi-Drug Resistant Organisms: None Reported Past Surgical History: Back Surgery, Cholecystectomy, Hernia Repair, Orthopedic Surgery Additional Past Surgical History / Comment(s): IVAN CTR. IVAN SHOULDER SCOPES. 03-08-15 lumbar laminectomy/decompression fusion L4-5 with interbody grafting/fusion, COLONOSCOPY, HEMORRHOIDECTOMY Past Anesthesia/Blood Transfusion Reactions: Previous Problems w/ Anesthesia Additional Past Anesthesia/Blood Transfusion Reaction / Comm: WOKE UP DURING SURGERY Past Psychological History: Anxiety, Depression, Panic Disorder, PTSD Smoking Status: Current some day smoker Past Alcohol Use History: None Reported Additional Past Alcohol Use History / Comment(s): HX RARE CIGAR USE. No cigarettes. Past Drug Use History: Marijuana Additional Drug Use History / Comment(s): CBD oils po BID.-INSTRUCTED TO REFRAIN FROM USE FOR AT LEAST 24 HOURS PRIOR TO PROCEDURE - Past Family History Mother Family Medical History: No Reported History Medications and Allergies Home Medications Medication Instructions Recorded Confirmed Type Aspirin 81 mg PO DAILY 03/06/15 12/24/22 History Divalproex Sodium 750 mg PO HS 03/06/15 12/24/22 History Pantoprazole Sodium 40 mg PO BID 03/06/15 12/24/22 History Sertraline [Zoloft] 200 mg PO DAILY 03/06/15 12/24/22 History Simvastatin [Zocor] 80 mg PO DAILY 03/06/15 12/24/22 History Levothyroxine Sodium [Synthroid] 50 mcg PO DAILY 11/22/19 12/24/22 History Cyclobenzaprine [Flexeril] 10 mg PO TID PRN 07/19/21 12/24/22 History Pregabalin [Lyrica] 75 mg PO TID 07/19/21 12/24/22 History Sucralfate [Carafate] 1 gm PO ACHS PRN 07/19/21 12/24/22 History Metoprolol Succinate [Metoprolol 25 mg PO DAILY 12/24/22 12/24/22 History Succinate ER] lisinopriL [Zestril] 5 mg PO DAILY 12/24/22 12/24/22 History Allergies Allergy/AdvReac Type Severity Reaction Status Date / Time No Known Allergies Allergy Verified 12/24/22 11:58 Surgical - Exam Vital Signs Temp Pulse Resp BP Pulse Ox 97 F L 72 18 128/81 97 12/30/22 09:13 12/30/22 09:13 12/30/22 09:13 12/30/22 09:13 12/30/22 09:13 - General well developed, well nourished, no distress - Eyes normal ocular movement, no icteric - ENT no hearing loss, no congestion - Neck no masses, trachea midline - Respiratory normal respiratory effort, clear to auscultation - Abdomen Abdomen: soft, non tender, no guarding, no rigid, no rebound - Integumentary no rash, no abnormal pigmentation - Neurologic no disoriented, no combative - Psychiatric oriented to time, oriented to person, oriented to place, speech is normal, memory intact Results - Labs 12/30/22 16:45 12/31/22 06:21 Abnormal Lab Results - Last 24 Hours (Table) 12/31/22 Range/Units 06:21 Creatinine 1.6 H (0.6-1.5) mg/dL Est GFR (CKD-EPI)AfAm 50.9 L (60.0-200.0) Est GFR (CKD-EPI)NonAf 43.9 L (60.0-200.0) Calcium 8.4 L (8.7-10.3) mg/dL Total Bilirubin <0.15 L (0.30-1.20) mg/dL Total Protein 5.7 L (6.2-8.2) g/dL Diabetes panel 12/31/22 Range/Units 06:21 Sodium 137 (135-145) mmol/L Potassium 4.2 (3.5-5.5) mmol/L Chloride 99 (96-109) mmol/L Carbon Dioxide 26.8 (20.0-27.5) mmol/L BUN 22.8 (9.0-27.0) mg/dL Creatinine 1.6 H (0.6-1.5) mg/dL Glucose 92 (70-110) mg/dL Calcium 8.4 L (8.7-10.3) mg/dL AST 34 (14-35) U/L ALT 26 (10-49) U/L Alkaline Phosphatase 64 (41-126) U/L Total Protein 5.7 L (6.2-8.2) g/dL Albumin 4.0 (3.8-4.9) g/dL Calcium panel 12/31/22 Range/Units 06:21 Calcium 8.4 L (8.7-10.3) mg/dL Albumin 4.0 (3.8-4.9) g/dL Pituitary panel 12/31/22 Range/Units 06:21 Sodium 137 (135-145) mmol/L Potassium 4.2 (3.5-5.5) mmol/L Chloride 99 (96-109) mmol/L Carbon Dioxide 26.8 (20.0-27.5) mmol/L BUN 22.8 (9.0-27.0) mg/dL Creatinine 1.6 H (0.6-1.5) mg/dL Glucose 92 (70-110) mg/dL Calcium 8.4 L (8.7-10.3) mg/dL Adrenal panel 12/31/22 Range/Units 06:21 Sodium 137 (135-145) mmol/L Potassium 4.2 (3.5-5.5) mmol/L Chloride 99 (96-109) mmol/L Carbon Dioxide 26.8 (20.0-27.5) mmol/L BUN 22.8 (9.0-27.0) mg/dL Creatinine 1.6 H (0.6-1.5) mg/dL Glucose 92 (70-110) mg/dL Calcium 8.4 L (8.7-10.3) mg/dL Total Bilirubin <0.15 L (0.30-1.20) mg/dL AST 34 (14-35) U/L ALT 26 (10-49) U/L Alkaline Phosphatase 64 (41-126) U/L Total Protein 5.7 L (6.2-8.2) g/dL Albumin 4.0 (3.8-4.9) g/dL Assessment and Plan Assessment: Impression: post operative urinary retention. multiple medical illnesses. Plan: I will place this patient on tamsulosin 0.4 mg daily. He should go home with the javier and f/u in my office next week for a voiding trial.
[2022-12-31] MEDS: DIVALPROEX 250 MG TABLET.DR PO SCH (20:49)
[2022-12-31] MEDS: SERTRALINE 100 MG TAB PO SCH (20:49)
[2023-01-01] MEDS: HYDROcodone/APAP 7.5-325MG 1 EACH TAB PO PRN ×3 (01:49→13:07)
[2023-01-01] MEDS: SUCRALFATE 1 GM TAB PO PRN ×2 (02:36→07:58)
[2023-01-01] MEDS: LACTATED RINGERS 1,000 ML IV SCH (02:53)
[2023-01-01] MEDS: LEVOTHYROXINE 50 MCG TAB PO SCH (06:30)
[2023-01-01] MEDS: PANTOPRAZOLE 40 MG TABLET PO SCH (06:30)
[2023-01-01 07:34] LABS: African American GFR (CKD) 76 (>60 ml/min/1.73 sqM); Anion Gap 6 mmol/L; Blood Urea Nitrogen 22 mg/dL (9-20); Calcium 8.4 mg/dL (8.4-10.2); Carbon Dioxide 30 mmol/L (22-30); Chloride 99 mmol/L (98-107); Glucose 101 mg/dL (74-99); Non-African American GFR(CKD) 65 (>60 ml/min/1.73 sqM); Potassium 4.8 mmol/L (3.5-5.1); Sodium 135 mmol/L (137-145)
[2023-01-01] MEDS: ASPIRIN 325 MG TAB PO SCH (07:57)
[2023-01-01] MEDS: METOPROLOL SUCCINATE (ER) 25 MG TAB.ER.24H PO SCH (07:57)
[2023-01-01] MEDS: ATORVASTATIN 40 MG TAB PO SCH (07:57)
[2023-01-01] MEDS: lisinopriL 5 MG TAB PO SCH (07:57)
[2023-01-01] MEDS: TAMSULOSIN 0.4 MG CAP.ER.24H PO SCH (07:58)
[2023-01-01] MEDS: PREGABALIN 75 MG CAP PO SCH (07:58)
[2023-01-01 10:06] VITALS: BP 143/71; PULSE 81; RESP 19; TEMP 99.2
--- NOTE | 2023-01-01 10:27 | P.DS ---
Providers Date of admission: 12/30/22 13:48 Expected date of discharge: 01/01/23 Attending physician: Aaron Arnold Consults: 12/30/22 13:43 Consult Physician Routine Consulting Provider: Sera Westfall Consult Reason/Comments: medical management s/p left total shoulder arthroplasty Do you want consulting provider notified?: Yes 12/31/22 15:00 Consult Physician Routine Consulting Provider: Anjum Neal Consult Reason/Comments: unable to urinate after surgery, javier placement Do you want consulting provider notified?: Yes Primary care physician: [facility] Course: Date of admission: 12/30/2022 Date of discharge: 01/01/2023 Admission diagnosis: Left severe glenohumeral joint osteoarthrosis Discharge diagnosis: Same Attending physician: Dr. Arnold Surgical procedures: Left total shoulder arthroplasty Brief history: Patient is a 67-year-old male with a history of left severe glenohumeral joint osteoarthrosis. At this point patient has failed conservative treatment measures and has opted to proceed with a elective left total shoulder arthroplasty. Hospital course: Details of patient's surgery can be found in operative report. Patient tolerated the procedure well and was subsequently transported to orthopedic floor. Patient's orthopeidc and medical care was provided daily. Patient had daily laboratory tests performed for evaluation of overall blood counts. Patient had daily physical therapy to include strengthening range of motion as well as education with walker ambulation. Patient was treated with aspirin for their postoperative DVT prophylaxis during their inpatient stay. Patient was noted to have a relatively uneventful postoperative course. Patient reported satisfactory pain control with oral pain medications by postoperative day 2. Patient showed satisfactory progress with physical therapy. Patient moved steadily through the program and had no difficulty meeting the goals by postoperative day 2. Given patient's otherwise satisfactory course and having met physical therapy goals, plan is to discharge patient home on postoperative day 2. Discharge condition/disposition: Patient will be discharged home in stable condition. Discharge medications: Instructions are given on resumption of patient's normal daily medications per primary care recommendation, in addition patient will be prescribed Hartman 7.5 mg/325 mg; aspirin 325 mg daily 21 days; senna. Orthopedic Discharge Instructions: 1. Wound care and infection precautions, keep incision dry and covered while showering, no lotions, creams, moisturizers. No soaking, pools, hot tubs. Do not scrub over incision. 2. Nonweightbearing left upper extremity. 3. Ice when necessary. Do not exceed 20 minutes per hour with ice pack. 4. Utilize sling to left upper extremity 5. Pain meds and anticoagulants per prescription. 6. Pain medication has potential to cause constipation. Increase oral fluid and fiber intake. Contact primary care provider if you have not had a bowel movement within 48 hours after discharge. 7. No anti-inflammatory medication until discussed at first post operative visit, this including Motrin, Aleve, Mobic, Diclofenac. 8. Follow up in office at 2 weeks postop with Tawanda Vasquez PA-C / Manav You PA-C 9. Follow up with your primary care doctor 7-10 days after discharge. 10. Contact [facility] with any questions, . Assessment: Left severe glenohumeral joint osteoarthrosis Procedures: Left total shoulder arthroplasty Patient Condition at Discharge: Good Plan - Discharge Summary Discharge Rx Participant: Yes New Discharge Prescriptions: New Sennosides/Docusate Sodium [Senna Plus 8.6-50 mg Softgel] 1 each PO DAILY #20 cap Aspirin 325 mg PO DAILY #21 tab HYDROcodone/APAP 7.5-325MG [Hartman 7.5] 1 each PO Q6HR PRN #28 tab PRN Reason: Pain No Action Sertraline [Zoloft] 200 mg PO DAILY Pantoprazole Sodium 40 mg PO BID Divalproex Sodium 750 mg PO HS Simvastatin [Zocor] 80 mg PO DAILY Aspirin 81 mg PO DAILY Levothyroxine Sodium [Synthroid] 50 mcg PO DAILY Cyclobenzaprine [Flexeril] 10 mg PO TID PRN PRN Reason: Muscle Spasm Metoprolol Succinate [Metoprolol Succinate ER] 25 mg PO DAILY Sucralfate [Carafate] 1 gm PO ACHS PRN PRN Reason: abdominal pain Pregabalin [Lyrica] 75 mg PO TID lisinopriL [Zestril] 5 mg PO DAILY Discharge Medication List Aspirin 81 mg PO DAILY 03/06/15 [History] Divalproex Sodium 750 mg PO HS 03/06/15 [History] Pantoprazole Sodium 40 mg PO BID 03/06/15 [History] Sertraline [Zoloft] 200 mg PO DAILY 03/06/15 [History] Simvastatin [Zocor] 80 mg PO DAILY 03/06/15 [History] Levothyroxine Sodium [Synthroid] 50 mcg PO DAILY 11/22/19 [History] Cyclobenzaprine [Flexeril] 10 mg PO TID PRN 07/19/21 [History] Pregabalin [Lyrica] 75 mg PO TID 07/19/21 [History] Sucralfate [Carafate] 1 gm PO ACHS PRN 07/19/21 [History] Metoprolol Succinate [Metoprolol Succinate ER] 25 mg PO DAILY 12/24/22 [History] lisinopriL [Zestril] 5 mg PO DAILY 12/24/22 [History] Aspirin 325 mg PO DAILY #21 tab 01/01/23 [Rx] HYDROcodone/APAP 7.5-325MG [Hartman 7.5] 1 each PO Q6HR PRN #28 tab 01/01/23 [Rx] Sennosides/Docusate Sodium [Senna Plus 8.6-50 mg Softgel] 1 each PO DAILY #20 cap 01/01/23 [Rx] Follow up Appointment(s)/Referral(s): Manav You PAC [PHYSICIAN INSURANCE APPRAISER] - 01/15/23 9:20 am Anjum Neal MD [STAFF PHYSICIAN] - 3 Days Patient Instructions/Handouts: Shoulder Arthroplasty (DC) Activity/Diet/Wound Care/Special Instructions: Orthopedic Discharge Instructions: 1. Wound care and infection precautions, keep incision dry and covered while showering, no lotions, creams, moisturizers. No soaking, pools, hot tubs. Do not scrub over incision. 2. Nonweightbearing left upper extremity. 3. Ice when necessary. Do not exceed 20 minutes per hour with ice pack. 4. Utilize sling to left upper extremity 5. Pain meds and anticoagulants per prescription. 6. Pain medication has potential to cause constipation. Increase oral fluid and fiber intake. Contact primary care provider if you have not had a bowel movement within 48 hours after discharge. 7. No anti-inflammatory medication until discussed at first post operative visit, this including Motrin, Aleve, Mobic, Diclofenac. 8. Follow up in office at 2 weeks postop with Tawanda Vasquez PA-C / Manav You PA-C 9. Follow up with your primary care doctor 7-10 days after discharge. 10. Contact [facility] with any questions, . Discharge Disposition: HOME SELF-CARE
--- NOTE | 2023-01-01 10:36 | P.PN ---
Subjective Progress Note Date: 01/01/23 Principal diagnosis: Left severe glenohumeral joint osteoarthrosis Patient was seen at bedside this morning lying in semirecumbent position was sling to left upper extremity. Patient says he did see urology yesterday and the plan is for patient to go home with Ari and follow up with urologist next week in office. Patient says he has not had any urinary issues before. P atient says his shoulder is doing better today as far as pain goes. Patient says he did taken [place] for pain medication about 2 hours ago. Patient says he has been up walking around the room and walk down the hallway earlier this morning. Patient says he is looking forward to going home later today. Patient says he has not had bowel yet, however, patient says he has been passing gas. Patient denies chest pain, fever, shortness breath, nausea, vomiting, change in vision, loss of bowel control. Objective - Vital Signs Vital signs: Vital Signs Temp 99.2 F 01/01/23 07:57 Pulse 81 01/01/23 07:57 Resp 19 01/01/23 07:57 BP 143/71 01/01/23 07:57 Pulse Ox 92 L 01/01/23 07:57 FiO2 Intake & Output 12/31/22 01/01/23 01/01/23 18:59 06:59 18:59 Intake Total 118 Output Total 3000 1650 850 Balance -3000 -5480 732 Intake: Oral 118 Output: Urine 3000 1650 850 Other: Voiding Method Indwelling Catheter - Exam Left shoulder: Incision is clean, dry, and intact. The dressing is in good condition. There is minimal soft tissue swelling and ecchymosis surrounding the medial and lateral aspects of the incision. Calf is soft, no tenderness with palpation. Plantar flexion, dorsiflexion, EHL, FHL are intact. Sensory exam to light touch throughout the extremity is intact, dorsal pedis pulses 2+ =. Sling presents to the left upper extremity. Steri-Strips present over incision. Negative for any fluctuance/purulence. Negative for any active drainage. Sensation is equal, symmetric combine intact throughout the upper extremities. Cap refill under 3 seconds in digits the upper extremities. Patient does have full range of motion left elbow in flexion/extension and left wrist in flexion/extension. Radial pulses intact, 2+ bilaterally. - Labs CBC & Chem 7: 12/30/22 16:45 01/01/23 07:03 Labs: Abnormal Lab Results - Last 24 Hours (Table) 12/31/22 01/01/23 Range/Units 06:21 07:03 Sodium 135 L (137-145) mmol/L BUN 22 H (9-20) mg/dL Creatinine 1.6 H (0.6-1.5) mg/dL Est GFR (CKD-EPI)AfAm 50.9 L (60.0-200.0) Est GFR (CKD-EPI)NonAf 43.9 L (60.0-200.0) Glucose 101 H (74-99) mg/dL Calcium 8.4 L (8.7-10.3) mg/dL Total Bilirubin <0.15 L (0.30-1.20) mg/dL Total Protein 5.7 L (6.2-8.2) g/dL Assessment and Plan Assessment: 1. Left severe glenohumeral joint osteoarthrosis - Postop day #2 status post left total shoulder arthroplasty 2.post-op urinary retention Plan: 1. Left severe glenohumeral joint osteoarthrosis; post-op urinary retention - left total shoulder arthroplasty performed Thursday, for 1822. Patient stable at bedside this morning his sling to left upper extremity. Patient does have a Chapman in place and will be going home with Chapman in place and following up with urology next week. Discharge home today. 2. Appreciate medical management 3. Pain management - Bellflower 4. DVT prophylaxis - aspirin 5. GI prophylaxis - senna 6. PT/OT - maintain sling to left upper extremity. Nonweightbearing left upper extremity. Patient may perform gentle range of motion exercises of left elbow and left wrist. 7. Encourage incentive spirometer use 8. Discharge planning - discharge home today Time with Patient: Less than 30
--- NOTE | 2023-01-01 12:12 | P.PN ---
Subjective Progress Note Date: 01/01/23 Subjective: She is seen and examined at bedside. No acute events overnight. He has minimal pain in his left shoulder. Has Chapman catheter in place. He denies any chest pain, abdominal pain, nausea, vomiting, diarrhea or constipation. Pertinent positives and negatives as discussed above, a complete review of systems was performed and all other systems are negative. Vitals Signs Reviewed. General: nontoxic, no distress, appears at stated age Derm: warm, dry, dressing dry, clean, intact Head: atraumatic, normocephalic, symmetric Eyes: EOMI, no lid lag, anicteric sclera Mouth: no lip lesion, mucus membranes moist Cardiovascular: S1S2 reg, no murmur Lungs: CTA bilateral, no rhonchi, no rales , no accessory muscle use Abdominal: soft, nontender to palpation, no guarding, no appreciable organomegaly Ext: no gross muscle atrophy, no edema, no contractures, left arm in a sling Neuro: CN II-XI grossly intact, no focal neuro deficits Psych: Alert, oriented, appropriate affect Data Reviewed Today: Pertinent Labs: Sodium 135, creatinine 1.16 Assessment and Plan: Acute urinary retention, status post Chapman catheter Acute kidney injury, likely postobstructive, improved Status post left total shoulder arthroplasty Hypertension Dyslipidemia Hypothyroidism GERD Depression -Flomax 0.4 mg daily -Urology to follow outpatient for voiding trial -Surgery note reviewed: Patient being discharged -On oral [place], IV Dilaudid as needed for pain control -Aspirin 325 mg daily for DVT prophylaxis -Home medications reviewed Patient is medically optimized for discharge home Thank you for allowing us to participate in the care of this pleasant patient. Do not hesitate to contact us with questions. Someone can be reached from the [facility] hospitalist group all hours of the day at [phone] or via [email or web address]. Objective - Vital Signs Vital signs: Vital Signs Temp 99.2 F 01/01/23 07:57 Pulse 81 01/01/23 07:59 Resp 19 01/01/23 07:59 BP 143/71 01/01/23 07:57 Pulse Ox 92 L 01/01/23 07:57 FiO2 Intake & Output 12/31/22 01/01/23 01/01/23 18:59 06:59 18:59 Intake Total 118 Output Total 3000 3950 850 Balance -8441 -0695 -482 Intake: Oral 118 Output: Urine 3000 1650 850 Other: Voiding Method Indwelling Catheter Indwelling Catheter - Labs CBC & Chem 7: 12/30/22 16:45 01/01/23 07:03 Labs: Abnormal Lab Results - Last 24 Hours (Table) 01/01/23 Range/Units 07:03 Sodium 135 L (137-145) mmol/L BUN 22 H (9-20) mg/dL Glucose 101 H (74-99) mg/dL
== END 2023-01-01 14:01 | disposition home or self-care (01) ==
LOC: OR 08:46 → 4SSUR 13:48
PROVIDERS: ADMIT Orthopaedic Surgery; ATTEND Orthopaedic Surgery
DX: M19.012 Primary osteoarthritis, left shoulder (principal); N17.9 Acute kidney failure, unspecified; N99.89 Other postprocedural complications and disorders of genitourinary system; R33.9 Retention of urine, unspecified; G47.33 Obstructive sleep apnea (adult) (pediatric); I10 Essential (primary) hypertension; K21.9 Gastro-esophageal reflux disease without esophagitis; E78.5 Hyperlipidemia, unspecified; M48.00 Spinal stenosis, site unspecified; E03.9 Hypothyroidism, unspecified; M51.37 Other intervertebral disc degeneration, lumbosacral region; F32.A Depression, unspecified; F41.0 Panic disorder [episodic paroxysmal anxiety]; F43.10 Post-traumatic stress disorder, unspecified; F41.9 Anxiety disorder, unspecified; H91.90 Unspecified hearing loss, unspecified ear; F17.200 Nicotine dependence, unspecified, uncomplicated; Z79.82 Long term (current) use of aspirin; Z79.899 Other long term (current) drug therapy; Z79.890 Hormone replacement therapy; Z90.49 Acquired absence of other specified parts of digestive tract; Z98.1 Arthrodesis status; Z98.890 Other specified postprocedural states
CPT/HCPCS: 23472; 94640; 64415; 76942; 80053; 80048; 85025; 88300; 73020; G0378 ×2; C1713; C1776; J2250; J0330; J1200; J1100; J0690 ×3; J2405; J3010; J1170 ×2; J2795; J2704; J2001

== ENCOUNTER → 2023-11-24 | Outpatient (CLI) | payer MEDICARE, OTHER ==
[2023-11-24 08:21] LABS: African American GFR (CKD) >90 (>60 ml/min/1.73 sqM); Blood Urea Nitrogen 18 mg/dL (9-20); Non-African American GFR(CKD) 82 (>60 ml/min/1.73 sqM)
--- NOTE | 2023-11-24 12:33 | CT ---
EXAMINATION: CT ABDOMEN AND PELVIS WITH IV CONTRAST DATE OF EXAMINATION: 11/24/2023. COMPARISON: None available. INDICATION: Left inguinal pain. PROCEDURE: Axial CT of the abdomen and pelvis was performed with contrast and sagittal and coronal reformatted images were performed. CT dose lowering techniques were used, to include: automated expos ure control, adjustment for patient size, and/or use of iterative reconstruction. FINDINGS: LOWER CHEST : The visualized lung bases are clear. There are no pleural or pericardial effusions. ABDOMEN: Liver and Biliary system: Normal. Adrenal glands: Normal. Kidneys and ureters: There is a 3 mm nonobstructing stone in the upper pole of the right kidney. The kidneys and ureters otherwise appear unremarkable. Spleen: Normal. Pancreas: Normal. Gallbladder: Surgically absent. Lymph nodes, Peritoneum and mesentery: There is no mesenteric or retroperitoneal lymphadenopathy. Gastrointestinal tract: There are no dilated loops of bowel or free intraperitoneal air. The appe ndix is normal. There is moderate descending colonic and sigmoid colonic diverticulosis without evide nce of diverticulitis. Aorta/IVC: There is mild vascular calcification throughout the abdominal aorta without evidence of aneurysmal dilation or dissection. IVC normal. Abdominal wall: Normal. PELVIS: Fluid: There is no free fluid in the pelvis. Lymph Nodes: There is no pelvic or inguinal lymphadenopathy.. Urinary bladder: Normal. BONES: Posterior spinal fusion is seen between L4 and L5. There are no acute osseous abnormalities. ADDITIONAL SIGNIFICANT FINDINGS: There is a small fat-containing indirect left inguinal hernia.. IMPRESSION: 1. No acute process seen within the abdomen or pelvis. 2. Small left inguinal hernia. 3. Diverticulosis without evidence of diverticulitis. 4. Nonobstructing right renal stone.
== END | disposition home or self-care (01) ==
LOC: RADCTMAIN 07:32
PROVIDERS: ATTEND Family Medicine
DX: K40.90 Unilateral inguinal hernia, without obstruction or gangrene, not specified as recurrent (principal); N20.0 Calculus of kidney; K57.30 Diverticulosis of large intestine without perforation or abscess without bleeding
CPT/HCPCS: 82565; 84520; 74177; 36415; Q9967

== ENCOUNTER → 2024-09-16 | Outpatient (CLI) | payer MEDICARE, OTHER | END | disposition home or self-care (01) | LOC: RADNMMAIN 08:09 | PROVIDERS: ATTEND Family Medicine | DX: Z53.9 Procedure and treatment not carried out, unspecified reason (principal) ==

== ENCOUNTER → 2024-09-26 | Outpatient (CLI) | payer MEDICARE, OTHER ==
[~2024-09-26] MED LIST changes: -ACETAMINOPHEN TAB 500 MG TAB PO PRN; -DEXAMETHASONE SOD PHOSPHATE 4 MG/ML 1 ML VIAL IV ONE; -HYDROmorphone 0.5 MG/0.5 ML SYRINGE IVP PRN; -LIDOCAINE 1% (10MG/ML) FOR IV START INTRADERMA PRN; -MELOXICAM 7.5 MG TAB PO PRN; -MIDAZOLAM 2 MG/2 ML VIAL IV PRN; -ONDANSETRON 4 MG/2 ML VIAL IVP ONE; +REGADENOSON 0.4 MG/5 ML SYRINGE IV PRN; -TRANEXAMIC ACID IN NACL,ISO-OS 1,000 MG in SALINE 1 100ML.BAG IVPB PRN; -ceFAZolin 3 GM in SODIUM CHLORIDE 0.9% 100 ML IVPB PRN
--- NOTE | 2024-09-26 10:57 | CA ---
Lexiscan Nuclear Stress Test Report Name: Weston Prado Exam Date: 09/26/2024 10:28 Exam Location: [place] Stress Ht (in): Wt (lb): BSA: Ordering Phys: Sarthak Reed MD Referring Phys: Angelica Davies Technologist: EVELIO Age: 69 Gender: M : 1955 Procedure CPT: Indications: R06.09 Dyspnea on exertion ICD-10 Codes: Patient History: Shortness of breath, palpitations and hypertension. Medications: Meds past 24 hrs: Pretest Chest Pain: STRESS TEST Lexiscan Protocol Exercise Duration (min:sec): 01:[address] Depressions (mm): Angina Score: Morales Score: Resting HR (bpm): 62 Peak HR (bpm): 89 Resting BP (mmHg): 140 / 87 Peak BP (mmHg): 153 / 72 MPHR: 151 Target HR: 128 % MPHR: 59 METS: 1.0 Total Dose: Peak Dose: Atropine: Double Product: 53707 BP Response: Stress Termination: Infusion complete Stress Symptoms: No chest pain or symptoms Stress Summary: ECG ANALYSIS Resting ECG: Sinus rhythm. Normal conduction. No arrhythmias. Normal repolarization. Stress ECG: No ECG changes from baseline with Lexiscan infusion. CONCLUSIONS No ECG evidence of ischemia with Lexiscan infusion. Nuclear test results to follow. Dr. Amarjit Pradhan MD (Electronically Signed) Final Date: 26 September 2024 10:56
--- NOTE | 2024-09-26 14:54 | NM ---
EXAMINATION TYPE: NM stress lexiscan cardiolite DATE OF EXAM: 09/26/2024 COMPARISON: NONE CLINICAL INDICATION: Male, 69 years old with history of R06.09 dyspnea on exertion; history of hypert ension, hypercholesteremia, and asthma. TECHNIQUE: After the intravenous administration of 10.0 mCi Tc 99m Sestamibi - Cardiolite resting SP ECT images acquired 45 minutes post injection. The patient received 0.4mg Lexiscan, 24.7 mCi Tc 99m Sestamibi - Stress images obtained [address] injection FINDINGS: Review of stress and rest SPECT images demonstrates diminished radiotracer uptake lateral wall toward s the apex on short axis and horizontal long axis views in which acute ischemia cannot be excluded.. Gated analysis shows normal estimated left ventricular ejection fraction of 42-52 %. End-diastolic v olume is upper limits of normal to mildly dilated. IMPRESSION: Cannot exclude acute ischemia left lateral ventricular wall towards the apex . Consider f urther investigation with direct catheter angiogram based on clinical correlation. [facility], , 09/26/2024 2:52 PM
== END | disposition home or self-care (01) ==
LOC: RADNMMAIN 07:56
PROVIDERS: ATTEND Family Medicine
DX: J45.909 Unspecified asthma, uncomplicated (principal); I10 Essential (primary) hypertension; E78.00 Pure hypercholesterolemia, unspecified; R06.09 Other forms of dyspnea
CPT/HCPCS: 93017; 78452; A9500; J2785

== ENCOUNTER 2024-12-19 05:42 | Day surgery (SDC) | payer OTHER ==
[2024-12-19] MEDS ORDERED: HEPARIN SODIUM,PORCINE 10,000 UNIT in SODIUM CHLORIDE 0.9% 1,000 ML IRRIGATION PRN (05:53)
[2024-12-19] MEDS ORDERED: NITROGLYCERIN SL TABS 0.4 MG TAB SUBLINGUAL PRN (05:53)
[2024-12-19] MEDS ORDERED: ALPRAZolam 0.25 MG TAB PO PRN (05:53)
[2024-12-19] MEDS ORDERED: HEPARIN SODIUM,PORCINE (1 ML) 2,500 UNIT in SODIUM CHLORIDE 0.9% 250 ML IRRIGATION PRN (05:53)
[2024-12-19] MEDS ORDERED: ALPRAZolam 0.5 MG TAB PO PRN (05:53)
[2024-12-19 06:30] VITALS: RESP 16; TEMP 98.4
[2024-12-19] MEDS: ASPIRIN 325 MG TAB PO STA (06:32)
[2024-12-19] MEDS: SODIUM CHLORIDE 0.9% 1,000 ML in EMPTY BAG 1 BAG IV SCH (06:32)
[2024-12-19] MEDS: ATORVASTATIN 80 MG TAB PO STA (06:32)
[2024-12-19 06:41] LABS: Basophils % (A) 0 %; Eosinophils # (A) 0.1 k/uL (0-0.7); Eosinophils % (A) 3 %; HCT 43.6 % (39.0-53.0); Lymphocytes # (A) 1.9 k/uL (1.0-4.8); Lymphocytes % (A) 36 %; MCH 28.6 pg (25.0-35.0); MCV 89.4 fL (80.0-100.0); Mean Platelet Volume 8.9; Monocytes # (A) 0.3 k/uL (0-1.0); Monocytes % (A) 6 %; Neutrophils # (A) 2.8 k/uL (1.3-7.7); Neutrophils % (A) 52 %; Platelet Count 173 k/uL (150-450); RBC 4.88 m/uL (4.30-5.90); RDW 15.2 % (11.5-15.5); WBC 5.3 k/uL (3.8-10.6)
[2024-12-19 06:57] LABS: African American GFR (CKD) >90 (>60 ml/min/1.73 sqM); Anion Gap 7 mmol/L; Blood Urea Nitrogen 18 mg/dL (9-20); Carbon Dioxide 26 mmol/L (22-30); Chloride 104 mmol/L (98-107); Glucose 108 mg/dL (74-99); Non-African American GFR(CKD) 79 (>60 ml/min/1.73 sqM); Potassium 4.4 mmol/L (3.5-5.1); Sodium 137 mmol/L (137-145)
[2024-12-19] MEDS: IV FLUID CONTINUATION 1,000 ML IV ONE (07:10)
[2024-12-19] MEDS: HEPARIN SODIUM,PORCINE 10,000 UNIT in SODIUM CHLORIDE 0.9% 1,000 ML IRRIGATION ONE (07:12)
[2024-12-19] MEDS: MIDAZOLAM 2 MG/2 ML VIAL IVP ONE (07:40)
[2024-12-19] MEDS: fentaNYL (PF) 50 MCG/1 ML VIAL IVP ONE (07:40)
[2024-12-19] MEDS: LIDOCAINE 1% INJ 10MG/ML (20 ML MDV) SQ ONE (07:41)
[2024-12-19] MEDS: VERAPAMIL SYRINGE (5 MG/10 ML) INTRAARTER ONE (07:42)
[2024-12-19] MEDS: HEPARIN SODIUM 1,000 UN/ML (10ML VL) IVP ONE (07:46)
[2024-12-19] MEDS: HEPARIN SODIUM,PORCINE (1 ML) 2,500 UNIT in SODIUM CHLORIDE 0.9% 250 ML IRRIGATION ONE (07:46)
[2024-12-19] MEDS: IOPAMIDOL-370 100ML BTL INJ ONE (07:50)
--- NOTE | 2024-12-19 07:59 | P.CARDCATH ---
Description of Procedure: PROCEDURES PERFORMED: Left heart catheterization, bilateral coronary angiography, ultrasound guided arterial access INDICATION: Normal stress test CONSENT:I have discussed the risks, benefits and alternative therapies for the above-mentioned procedure and for both sedation/analgesia as well as necessary blood product administration, if indicated, as they pertain to this patient. The patient has indicated understanding and acceptance of the risks and procedures discussed. PROCEDURE: After the risks, benefits and alternatives of the above mentioned procedure explained in detail with the patient, informed consent was obtained. Patient was taken to the catheterization lab and prepped and draped in usual fashion. Ultrasound guidance was used to assess for arterial access. 1% lidocaine was used to anesthetize the right radial artery. A 6-[place] sheath was placed in the right radial artery using modified Seldinger technique and ultrasound guidance. Left coronary angiography was performed with a 5-[place] JL 3.5 catheter and right coronary angiography was performed with a 5-[place] FR5 catheter in various views. A 5-[place] FR5 catheter was inserted into the left ventricle and pressure measurements were obtained. The right radial sheath was removed and a TR band was placed with hemostasis achieved. The patient tole rated the procedure well. Patient was transported back to the post catheterization holding area in stable condition. Conscious Sedation: Patient was monitored under the direct supervision of myself for conscious sedation using Versed and fentanyl for a total duration of 10 minutes HEMODYNAMICS: Aorta: 142/92 LV: 138/10, LVEDP 25 SELECTIVE CORONARY ARTERIOGRAPHY: LEFT MAIN: The left main is a large caliber vessel which bifurcates into the LAD and circumflex. There is no significant stenosis. LEFT ANTERIOR DESCENDING CORONARY ARTERY: LAD is a large caliber vessel which wraps around to the apex. There are mild luminal irregularities of the LAD. LEFT CIRCUMFLEX CORONARY ARTERY: Left circumflex is a moderate caliber vessel without significant stenosis. RIGHT CORONARY ARTERY: The right coronary artery is a large caliber vessel which gives off a PDA and PLV branch and is the dominant vessel. There is a proximal RCA 10 to 20% stenosis and otherwise normal. FINAL IMPRESSION: 1. Relatively normal coronary arteries as described above other than RCA 10 to 20% stenosis and mild luminal irregularities of the LAD. 2. Elevated left sided filling pressures PLAN: 1. Aggressive risk factor modification per most recent ACC/AHA guidelines. 2. Follow-up in the office in 1-2 weeks.
[2024-12-19 17:08] VITALS: BP 144/79; PULSE 66
== END 2024-12-19 11:02 | disposition home or self-care (01) ==
LOC: CATHCVL 05:42
PROVIDERS: ATTEND Internal Medicine
DX: I25.10 Atherosclerotic heart disease of native coronary artery without angina pectoris (principal); I10 Essential (primary) hypertension; E78.2 Mixed hyperlipidemia; E66.9 Obesity, unspecified; G47.33 Obstructive sleep apnea (adult) (pediatric); Z68.39 Body mass index [BMI] 39.0-39.9, adult; Z79.02 Long term (current) use of antithrombotics/antiplatelets; Z79.82 Long term (current) use of aspirin; Z79.890 Hormone replacement therapy; Z79.899 Other long term (current) drug therapy
CPT/HCPCS: 93458; 80048; 85025; 99152; C1894; J2250; J1644 ×3; J2003; Q9967; J3010

== ENCOUNTER 2025-02-18 10:35 | Emergency (ER) | payer OTHER ==
[2025-02-18 10:44] VITALS: RESP 18; TEMP 97.6
--- NOTE | 2025-02-18 10:46 | ED ---
Fall HPI - General Chief Complaint: Fall Stated Complaint: Fall Time Seen by Provider: 02/18/25 10:37 Source: patient, RN notes reviewed Mode of arrival: EMS Limitations: no limitations - History of Present Illness Initial Comments: This is a 69-year-old male who presents to the emergency department for a fall. Patient was walking around [employer] and tripped on a pallet, injuring his right ankle and lower back. Denies hitting his head or any loss of consciousness. Not taking any blood thinners. Of note, this was incorrectly mentioned by registration, he is only on baby aspirin, not any other blood thinners. He does have multiple abrasions on his extremities, however these are not particularly painful. Unsure when his last tetanus vaccine is. His largest concern is the lower back and right ankle. MD Complaint: fall - Related Data Home Medications Medication Instructions Recorded Confirmed Aspirin 81 mg PO DAILY 03/06/15 12/19/24 Divalproex Sodium 750 mg PO HS 03/06/15 12/15/24 Pantoprazole Sodium 40 mg PO BID 03/06/15 12/19/24 Sertraline [Zoloft] 200 mg PO DAILY 03/06/15 12/15/24 Cyclobenzaprine [Flexeril] 10 mg PO TID PRN 07/19/21 12/15/24 Pregabalin [Lyrica] 75 mg PO TID 07/19/21 12/19/24 Sucralfate [Carafate] 1 gm PO ACHS PRN 07/19/21 12/15/24 lisinopriL [Zestril] 20 mg PO DAILY 12/24/22 12/19/24 Albuterol Sulfate [Albuterol 1 - 2 puff PO RT-Q4H PRN 05/27/23 12/15/24 Sulfate Hfa] Carboxymethylcellulose Sodium 1 drop BOTH EYES TID PRN 05/27/23 12/15/24 [Refresh Tears] Fluticasone Nasal [place] [Flonase 1 spray EA NOSTRIL DAILY PRN 05/27/23 12/15/24 Nasal [place]] Fluticasone/Umeclidin/Vilanter 1 puff INHALATION RT-DAILY 05/27/23 12/15/24 [Trelegy Ellipta 100-62.5-25] Ibuprofen [Advil] 200 mg PO Q8HR PRN 05/27/23 12/15/24 Levothyroxine Sodium [Synthroid] 50 mcg PO DAILY 05/27/23 12/19/24 Previous Rx's Medication Instructions Recorded Atorvastatin [Lipitor] 40 mg PO HS 90 Days #90 tab 05/27/23 Allergies Allergy/AdvReac Type Severity Reaction Status Date / Time No Known Allergies Allergy Verified 12/19/24 06:33 Review of Systems ROS Statement: Those systems with pertinent positive or pertinent negative responses have been documented in the HPI. ROS Other: All systems not noted in ROS Statement are negative. Past Medical History Past Medical History: GERD/Reflux, Hearing Disorder / Deafness, Hyperlipidemia, Hypertension, Musculoskeletal Disorder, Osteoarthritis (OA), Sleep Apnea/CPAP/BIPAP, Thyroid Disorder Additional Past Medical History / Comment(s): DDD/spinal stenosis, has cpap doesn't always use, hypothyroidism History of Any Multi-Drug Resistant Organisms: None Reported Past Surgical History: Back Surgery, Hernia Repair, Orthopedic Surgery Additional Past Surgical History / Comment(s): [facility]. 03-08-15 lumbar laminectomy/decompression fusion L4-5 with interbody grafting/fusion, bilat. inguinal hernia repairs, Rt. TKA Past Anesthesia/Blood Transfusion Reactions: No Reported Reaction Additional Past Anesthesia/Blood Transfusion Reaction / Comment(s): woke up during surgery several years ago. more recently has taken longer to come out of anesthesia, tried to get off the table after knee surgery Smoking Status: Never smoker - Past Family History Mother Family Medical History: Coronary Artery Disease (CAD) Additional Family Medical History / Comment(s): lived to be age 96 Father Family Medical History: Coronary Artery Disease (CAD), Myocardial Infarction ([place]) General Exam Limitations: no limitations General appearance: alert, in no apparent distress Head exam: Present: atraumatic, normocephalic, normal inspection Respiratory exam: Present: normal lung sounds bilaterally. Absent: respiratory distress, wheezes, rales, rhonchi, stridor Cardiovascular Exam: Present: regular rate, normal rhythm Extremities exam: Present: other (Tenderness to palpation over the right ankle. Range of motion limited by pain. 2+ DP and PT pulses) Back exam: Present: other (Tenderness to palpation over the lumbar spine. No swelling or ecchymosis.) Neurological exam: Present: alert, oriented X3, CN II-XII intact Psychiatric exam: Present: normal affect, normal mood Skin exam: Present: other (Scattered abrasions to the right upper and right lower extremity. No active bleeding.) Course Vital Signs 02/18/25 10:37 Temperature 97.6 F Pulse Rate 75 Respiratory 18 Rate Blood Pressure 162/87 O2 Sat by Pulse 97 Oximetry Medical Decision Making - Medical Decision Making This is a 69-year-old male who presents to the emergency department for right ankle pain and low back pain after a fall. Was pt. sent in by a medical professional or institution? @ -No Did you speak to anyone other than the patient for history? @ -No Did you review nursing and triage notes? @ -Yes, and I agree, it is accurate with regards to the patient's symptoms. Were old charts reviewed? @ -No Differential Diagnosis? @ -Differential Musculoskeletal Muscular strain, contusion, ligament sprain, fracture, arthritis, septic arthritis, bursitis, cellulitis, muscle spasm, nerve compression, DVT, arterial occlusion, herpes zoster, electrolyte abnormality, tumor.... This is not meant to be in all inclusive list EKG interpreted by me (3pts min.)? @ -Not obtained X-rays interpreted by me (1pt min.)? @ -X-ray of the lumbar spine obtained. My interpretation identifies no acute fractures. X-ray of the right ankle obtained. My interpretation identifies no acute fractures. CT interpreted by me (1pt min.)? @ -Not obtained U/S interpreted by me (1pt. min.)? @ -Not obtained What testing was considered but not performed? (CT, X-rays, U/S, labs)? Why? @ -None What meds were considered but not given? Why? @ -None Did you discuss the management of the patient with other professionals? @ -No Did you reconcile home meds? @ -No Was smoking cessation discussed for >3mins.? @ -No Was critical care preformed (if so, how long)? @ -No Were there social determinants of health that impacted care today? How? (Homelessness, low income, unemployed, alcoholism, drug addiction, transportation, low edu. Level, literacy, decrease access to med. care, longterm, rehab)? @ -No Was there de-escalation of care discussed even if they declined? (Discuss DNR or withdrawal of care, Hospice)? @ -No What co-morbidities impacted this encounter? (DM, HTN, Smoking, COPD, CAD, Cancer, CVA, Hep., AIDS, mental health diagnosis, sleep apnea, morbid obesity)? @ -Osteoarthritis, degenerative disc disease Was patient admitted / discharged? @ -Discharged. X-ray of the lumbar spine obtained revealing no acute process. X-ray of the right ankle obtained also revealing no acute findings. Tetanus vaccine was updated due to the multiple abrasions. Advised that symptoms may be related to an ankle sprain. However, if he continues to have pain after 10 to 14 days he may need repeat x-rays in the event there is a fracture that is not currently identifiable. He was given a Velcro stirrup splint for support. Advised to continue with ice and elevation as well as ibuprofen and Tylenol as needed for pain relief. Patient discharged home in stable condition. Case discussed with ED attending Dr. Holloway. Return precautions reviewed in depth, the patient is instructed to return to the emergency department with any new, worsening, or concerning symptoms. Patient verbalized understanding. Undiagnosed new problem with uncertain prognosis? @ -None Drug Therapy requiring intensive monitoring for toxicity (Heparin, Nitro, Insulin, Cardizem)? @ -None Were any procedures done? @ -None Diagnosis/symptom? @ -Fall, right ankle sprain, lumbar contusion Acute, or Chronic, or Acute on Chronic? @ -Acute Uncomplicated (without systemic symptoms) or Complicated (systemic symptoms)? @ -Uncomplicated Side effects of treatment? @ -None Exacerbation, Progression, or Severe Exacerbation] @ -Not applicable Poses a threat to life or bodily function? @ -No - Radiology Data Radiology results: report reviewed, image reviewed Disposition Clinical Impression: Fall, Right ankle sprain, Lumbar contusion Disposition: HOME SELF-CARE Instructions (If sedation given, give patient instructions): Ankle Sprain (ED) Additional Instructions: Return to the emergency department with any new, worsening, or concerning symptoms. Alternate with ibuprofen and Tylenol as needed for pain relief. Continue to ice and elevate the leg. Use the Velcro splint provided as needed for discomfort and for support. If you continue to have pain after 10 to 14 days, you may need repeat x-rays. You can have that done here, with your primary care provider, or urgent care. Is patient prescribed a controlled substance at d/c from ED?: No Referrals: Reema Reed DO [Primary Care Provider] - 1-2 days Time of Disposition: 11:56
[2025-02-18] MEDS: ACETAMINOPHEN TAB 500 MG TAB PO STA (10:54)
[2025-02-18] MEDS: DIPH,PERTUS(ACELL)TETVAC-LF 0.5 ML VIAL IM ONE (10:55)
[2025-02-18] MEDS: CYCLOBENZAPRINE 10 MG TAB PO STA (10:55)
[2025-02-18] MEDS: IBUPROFEN 800 MG TAB PO STA (10:55)
--- NOTE | 2025-02-18 11:39 | XR ---
EXAMINATION TYPE: XR lumbar spine 2 or 3V DATE OF EXAM: 02/18/2025 11:16 AM COMPARISON: 05/28/2015 CLINICAL INDICATION: Male, 69 years old with history of Fall, pain TECHNIQUE: 3 view(s) obtained. FINDINGS: There are 5 lumbar-type vertebral bodies. Pedicle screws and fixation rods are present at L4-5. Remai vega levels appear intact. There is disc space narrowing L3-4. Remaining disc spaces appear preserved . Disc spacer is visualized at L4-5. No spondylolisthesis is evident. No significant interval change evident. IMPRESSION: 1. Degenerative disc change L3-4. [facility], , 02/18/2025 11:36 AM
--- NOTE | 2025-02-18 11:41 | XR ---
EXAMINATION TYPE: XR ankle complete RT DATE OF EXAM: 02/18/2025 11:16 AM COMPARISON: None. CLINICAL INDICATION: Male, 69 years old with history of Fall, pain TECHNIQUE: 3 view(s) obtained. FINDINGS: No acute fracture or dislocation evident. Ankle mortise is intact. Soft tissues appear normal. Follow up exams can be performed 7-10 days from acute trauma for continued pain. IMPRESSION: 1. No acute osseous abnormality right ankle [facility], , 02/18/2025 11:38 AM
[2025-02-18] MEDS: ACET/COD 300 MG/30 MG STARTER PACK 6 TAB BTL PO STA (12:22)
[2025-02-18 12:32] VITALS: BP 135/82; PULSE 78
== END 2025-02-18 12:30 | disposition home or self-care (01) ==
LOC: EC 10:35
DX: S93.401A Sprain of unspecified ligament of right ankle, initial encounter (principal); S30.0XXA Contusion of lower back and pelvis, initial encounter; Z23 Encounter for immunization; W01.0XXA Fall on same level from slipping, tripping and stumbling without subsequent striking against object, initial encounter; Y93.01 Activity, walking, marching and hiking
CPT/HCPCS: 72100; 90471; 90715; 99284